=== PATIENT | female | born 1985 | race Caucasian/White ===

== ENCOUNTER 2021-08-12 07:54 | Outpatient (CLI) | payer OTHER, SELFPAY ==
[2021-08-12 08:08] VITALS: BMI 44.1
[2021-08-12 08:28] VITALS: BP 146/89; PULSE 96; RESP 18; TEMP 37.1; O2SAT 97; BMI 44.1
[2021-08-12 08:33] LABS: Barbiturates Screen,Urine Negative ng/ml (<200)
[2021-08-12 08:34] LABS: Benzodiazepines Screen,Urine Negative ng/ml (<200)
[2021-08-12 08:35] LABS: Amphetamine/Metha Screen,Urine Negative ng/ml (<1000); Cocaine Screen,Urine Negative ng/ml (<300)
[2021-08-12 08:36] LABS: Methadone Screen,Urine Negative ng/ml (<300)
[2021-08-12 08:37] LABS: Cannabinoid Screen,Urine Negative ng/ml (<50); Opiate Screen,Urine Negative ng/ml (<300)
[2021-08-12 08:38] LABS: Phencyclidine Screen,Urine Negative ng/ml (<25)
[2021-08-12 08:49] LABS: Microscopic, Urine URINE MICROSCOPIC (MICROSCOPIC)
[2021-08-12 08:54] LABS: Appearance,Urine CLEAR (Clear); Bilirubin,Urine Negative (Negative); Blood, Urine TRACE-I (Negative); Color,Urine YELLOW (Yellow); Glucose,Urine (UA) Negative (Negative); Ketones,Urine Negative (Negative); Leukocyte Esterase,Urine TRACE (Negative); Nitrate,Urine Negative (Negative); PH,Urine 6.5 (5.0-8.5); Protein,Urine 1+ (Negative); Specific Gravity, Urine 1.025 (1.005-1.030); Urobilinogen,Urine 0.2 EU/dl (0.2)
[2021-08-12 09:27] LABS: Bacteria,Urine 1+ /lpf; WBC,Urine Occasional #/hpf (0-3)
== END 2021-08-12 09:48 | disposition home or self-care (01) ==
LOC: OBOUT 07:58 → OB 08:02
PROVIDERS: PCP Family Medicine; Visit Provider Nurse Practitioner Obstetrics & Gynecology
DX: O36.8130 Decreased fetal movements, third trimester, not applicable or unspecified (principal); Z3A.37 37 weeks gestation of pregnancy
CPT/HCPCS: 59025; 80305; 81001; G0463

== ENCOUNTER 2022-08-28 02:28 | Emergency (ER) | payer BC, OTHER, SELFPAY ==
[2022-08-28] VITALS (10 sets, daily range): BP systolic 106–132; BP diastolic 56–81; PULSE 64–87; RESP 11–18; TEMP 36.6; O2SAT 92–100; BMI 44.9
--- NOTE | 2022-08-28 02:20 | ECG_ITS ---
APPROVED REPORT Exam: Resting ECG HR:80 bpm ECG Measurements Heart Rate 80 AXES VA 156 P 66 QRSd 85 QRS 72 QT 353 T 59 QTc 389 Conclusion SINUS RHYTHM LOW QRS VOLTAGE IN PRECORDIAL LEADS [QRS DEFLECTION < 1.0 mV IN CHEST LEADS] BORDERLINE ECG UNCONFIRMED REPORT Electronically signed by : Cortes Gallego MD 08/29/2022 08:58:56
--- NOTE | 2022-08-28 02:38 | CT_ITS ---
PROCEDURE INFORMATION: Exam: CT Abdomen And Pelvis With Contrast Exam date and time: 08/28/2022 3:28 AM Age: 37 years old Clinical indication: Abdominal pain; Localized; Upper; Additional info: Buq pain TECHNIQUE: Imaging protocol: Computed tomography of the abdomen and pelvis with contrast. Radiation optimization: All CT scans at this facility use at least one of these dose optimization techniques: automated exposure control; mA and/or kV adjustment per patient size (includes targeted exams where dose is matched to clinical indication); or iterative reconstruction. Contrast material: ISOVUE; Contrast volume: 75 ml; Contrast route: IV; Other protocol: This patient has received 0 known CTs and 0 known cardiac nuclear medicine studies in the 12 months prior to the current study. COMPARISON: CR XR CHEST 2V 08/28/2022 3:13 AM FINDINGS: Liver: Normal. No mass. Gallbladder and bile ducts: Normal. No calcified stones. No ductal dilation. Pancreas: Normal. No ductal dilation. Spleen: Normal. No splenomegaly. Adrenal glands: Normal. No mass. Kidneys and ureters: Normal. No hydronephrosis. Stomach and bowel: Unremarkable. No obstruction. No mucosal thickening. Appendix: No evidence of appendicitis. Intraperitoneal space: Unremarkable. No free air. No significant fluid collection. Vasculature: Unremarkable. No abdominal aortic aneurysm. Lymph nodes: A few scattered mildly prominent mesenteric lymph nodes are identified measuring up to 8 mm in diameter. A few periceliac lymph nodes are also seen. Urinary bladder: Unremarkable as visualized. Reproductive: Unremarkable as visualized. Bones/joints: Unremarkable. No acute fracture. Soft tissues: Unremarkable. IMPRESSION: Some mildly prominent lymph nodes in the mesentery and upper retroperitoneum are identified the etiology of these are unclear, these could be reactive to recent infectious process. No other acute process is identified.
--- NOTE | 2022-08-28 02:38 | XR_ITS ---
PROCEDURE INFORMATION: Exam: XR Chest Exam date and time: 08/28/2022 3:13 AM Age: 37 years old Clinical indication: Other: Upper abd pain; Additional info: Chest/ upper abdomen pain TECHNIQUE: Imaging protocol: Radiologic exam of the chest. Views: 2 views. COMPARISON: CR CXR CHEST(2 VIEWS-NOT PORTABLE) 05/07/2017 9:34 AM FINDINGS: Lungs: Unremarkable. No consolidation. Pleural spaces: Unremarkable. No pleural effusion. No pneumothorax. Heart/Mediastinum: Unremarkable. No cardiomegaly. Bones/joints: Unremarkable. IMPRESSION: No acute findings.
[2022-08-28 02:46] LABS: Basophils # 0.2 K/mm3 (0-0.2); Basophils % 1.9 % (0.1-2.0); Eosinophils # 0.5 K/mm3 (0.0-0.4); Eosinophils % 4.5 % (0.1-12.0); Hematocrit 43.3 % (37.0-47.0); Hemoglobin 14.7 g/dL (12.2-16.2); Lymphocytes # 3.2 K/mm3 (0.7-4.5); Lymphocytes % 28.9 % (10-50); Mean Corpuscular HGB Conc 34.1 g/dL (31.8-35.4); Mean Corpuscular Hemoglobin 29.6 pg (27.0-31.2); Mean Corpuscular Volume 86.8 fl (81-99); Mean Platelet Volume 7.8 fl (7.4-10.4); Monocytes # 0.7 K/mm3 (0.1-1.0); Monocytes % 6.4 % (1.7-9.3); Neutrophils # 6.5 K/mm3 (1.8-7.8); Neutrophils % 58.4 % (37.0-80.0); Platelet Count 267 K/mm3 (142-424); Red Blood Count 4.98 M/mm3 (4.20-5.40); Red Cell Distribution Width 13.5 % (11.5-17.5); White Blood Count 11.1 K/mm3 (4.8-10.8)
[2022-08-28 02:52] LABS: Alanine Aminotransferase 42 U/L (12-78); Albumin Level 4.3 g/dl (3.5-5.0); Alkaline Phosphatase 112 U/L (38-126); Amylase 81 U/L (30-110); Anion Gap 9.8 mEq/L (5-15); Aspartate Amino Transferase 49 U/L (14-36); Bilirubin,Direct 0.3 mg/dl (0.0-0.4); Bilirubin,Indirect 0.1 mg/dL (0.0-0.9); Bilirubin,Total 0.4 mg/dl (0.2-1.3); Bilirubin,Unconjugated 0.1 mg/dL (0.0-1.1); Blood Urea Nitrogen 15 mg/dl (7-17); Calcium 8.7 mg/dl (8.4-10.2); Carbon Dioxide 28 mmol/L (22.0-30.0); Chloride 103 mmol/L (98-107); Creatinine Clearance Estimated 99 mL/min (50-200); Estimated Glomerular Filt Rate 94 ml/min (>60); GFR (African American) 114 ML/MIN (>60); Glucose 119 mg/dl (74-100); Lipase 208 U/L (23-300); Potassium 3.8 mmoL/L (3.5-5.1); Sodium 137 mmol/L (136-145); Total Protein,Serum 7.3 g/dl (6.3-8.2)
[2022-08-28 02:57] LABS: C-Reactive Protein 12.8 mg/L (0-4)
[2022-08-28 03:09] LABS: Troponin I < 0.01 ng/ml (0.00-0.034)
[2022-08-28 03:15] LABS: HCG Qualitative, Serum Negative (Negative)
[2022-08-28 03:16] LABS: Erythrocyte Sedimentation Rate 16 mm/hr (0-20)
--- NOTE | 2022-08-28 03:18 | HMH.EDABDPAI ---
Discharge Plan Disposition Chief Complaint: Abdominal Pain Prescriptions Prescriptions: No Action No Known Home Medications Referrals Follow up/Referrals: Provider,Referral, MD [Primary Care Provider] - See instructions Clinical Impressions Clinical Impression: Abdominal pain Instructions Patient Instructions: DI for Acute Abdominal Pain Discharge ED Provider: Piter (ED)Daniel Abdominal Pain HPI General Chief Complaint: Abdominal Pain Stated Complaint: chest pain Time Seen by Provider: 08/28/22 03:18 Mode of Arrival: Ambulatory Source of Information: Patient and Medical Record Limitations: No Limitations Description of Symptoms (Recalled from ER Triage Doc. by RN): Pt reports squeezing upper quadrant abdominal pain that awoke her about an hour ago . Pt says pain was 8 out of 10 then but has subsided to a 7 out of 10. Pt endorses some nausea as well. History of Present Illness HPI narrative: acute onset of upper abd pain which started tonight with nausea - MD complaint: abdominal pain Onset (ago): hour(s) Consistency: constant Location: epigastric Severity: moderate Quality: sharp Related Data Home Medications Medication Instructions Recorded Confirmed No Known Home Medications 08/28/22 08/28/22 Allergies Allergy/AdvReac Type Severity Reaction Status Date / Time No Known Allergies Allergy Unverified 06/30/17 14:20 [facility] Disclaimer: The information contained in this section may have been updated after the patient was seen, as this information can be updated by other users. Social History Smoking Status: Never smoker alcohol intake: never current occupational status: employed Travel in the last 8 weeks: None ROS Obtained: Yes All systems reviewed & no additional complaints except as documented Physical Exam General General appearance: alert Head Head exam: normocephalic Eye Eye exam: Present PERRL and EOMI; Absent scleral icterus ENT ENT exam: Present mucous membranes moist Neck Neck exam: Present trachea midline Respiratory Respiratory exam: Absent respiratory distress Cardiovascular Cardiovascular exam: Present regular rate Abdominal Exam Abdominal exam: Present soft, tenderness and Thomson's sign; Absent guarding or rebound Abdominal tenderness: Present RUQ and moderate Extremities Exam Extremities exam: Present full ROM Neurological Exam Neurological exam: Present alert, oriented X3 and CN II-XII intact; Absent motor sensory deficit Psychiatric Psychiatric exam: Present normal affect Skin Skin exam: Absent rash Medical Decision Making Medical Records Medical records reviewed: Yes I reviewed the patient's medical records. Tylor Inquiry Pt receiving controlled substance: No Vital Signs: 08/28/22 02:28 08/28/22 02:31 08/28/22 03:35 Temperature 97.9 F Temperature Source Oral Pulse Rate 86 84 Pulse Rate [Right Radial] 86 Respiratory Rate 16 18 12 Blood Pressure 132/81 126/75 Blood Pressure [Right Arm] 120/56 L Blood Pressure Mean 98 Blood Pressure Mean [Right Arm] 77 Blood Pressure Source [Right Arm] Automatic Cuff Blood Pressure Position [Right Arm] Sitting 02 Sat by Pulse Oximetry 99 95 Oxygen Delivery Method Room Air Room Air 08/28/22 04:00 08/28/22 04:30 08/28/22 05:00 Temperature Temperature Source Pulse Rate 70 73 64 Pulse Rate [Right Radial] Respiratory Rate 16 15 15 Blood Pressure 111/67 110/70 106/62 L Blood Pressure [Right Arm] Blood Pressure Mean Blood Pressure Mean [Right Arm] Blood Pressure Source [Right Arm] Blood Pressure Position [Right Arm] 02 Sat by Pulse Oximetry 94 L 92 L 96 Oxygen Delivery Method Room Air Room Air Room Air 08/28/22 05:30 08/28/22 06:00 08/28/22 06:30 Temperature Temperature Source Pulse Rate 77 Pulse Rate [Right Radial] Respiratory Rate 17 11 L 14 Blood Pressure 122/70 128/73 117/62 Blood Pressure [Right Arm] Blo
--- NOTE | 2022-08-28 03:45 | PC.NURSE ---
patient returned from CT. resting in bed at this time. No other needs
--- NOTE | 2022-08-28 06:00 | PC.NURSE ---
pt still c/o mild nausea. medicated per MAR no new needs at this time
--- NOTE | 2022-08-28 06:41 | PC.NURSE ---
Pt continues to be nauseated and dry heave, medicated with another 4mg of zofran and will continue with PO Challenge. Updated patient on POC. PT agreeable with this. No other needs at this time.
--- NOTE | 2022-08-28 06:58 | PC.NURSE ---
Pt states that her nausea is much better and is minimal as long as she isn't moving around.
== END 2022-08-28 07:09 | disposition home or self-care (01) ==
PROVIDERS: Emergency Provider Emergency Medicine
DX: R10.10 Upper abdominal pain, unspecified (principal); R11.0 Nausea
CPT/HCPCS: 71046; 74177; 80048; 80076; 82150; 83690; 84484; 84703; 85025; 85651; 86140; 93005; 96361; 96374; 96375; 96376; 99285; J2405; Q9967

== ENCOUNTER 2022-08-28 23:46 | Emergency (ER) | payer BC, OTHER, SELFPAY ==
[2022-08-28 23:48] VITALS: BP 113/50; PULSE 105; RESP 24; TEMP 36.5; O2SAT 99; BMI 44.9
[2022-08-28 23:56] VITALS: BP 110/47; PULSE 56; RESP 20
[2022-08-28 23:57] VITALS: BMI 44.9
[2022-08-29] VITALS (15 sets, daily range): BP systolic 108–165; BP diastolic 50–90; PULSE 52–77; RESP 15–56; TEMP 36.9; O2SAT 93–97
--- NOTE | 2022-08-29 00:13 | PC.NURSE ---
Patient c/o severe pain 03/22. Medicated per sep. Pt c/o excessively sweating. Pt given cold washcloth.
[2022-08-29 00:18] LABS: Basophils # 0.1 K/mm3 (0-0.2); Basophils % 0.6 % (0.1-2.0); Eosinophils # 0.2 K/mm3 (0.0-0.4); Eosinophils % 1.1 % (0.1-12.0); Hematocrit 43.6 % (37.0-47.0); Hemoglobin 14.2 g/dL (12.2-16.2); Lymphocytes # 1.9 K/mm3 (0.7-4.5); Lymphocytes % 12.8 % (10-50); Mean Corpuscular HGB Conc 32.6 g/dL (31.8-35.4); Mean Corpuscular Hemoglobin 29.5 pg (27.0-31.2); Mean Corpuscular Volume 90.6 fl (81-99); Neutrophils # 11.4 K/mm3 (1.8-7.8); Neutrophils % 78.5 % (37.0-80.0); Platelet Count 316 K/mm3 (142-424); Red Blood Count 4.81 M/mm3 (4.20-5.40); Red Cell Distribution Width 13.6 % (11.5-17.5); White Blood Count 14.5 K/mm3 (4.8-10.8)
[2022-08-29 00:19] LABS: Alanine Aminotransferase 422 U/L (12-78); Albumin/Globulin Ratio 1.4 (1.1-1.8); Alkaline Phosphatase 144 U/L (38-126); Anion Gap 11.9 mEq/L (5-15); Aspartate Amino Transferase 510 U/L (14-36); Blood Urea Nitrogen 11 mg/dl (7-17); Calcium 8.5 mg/dl (8.4-10.2); Carbon Dioxide 24 mmol/L (22.0-30.0); Chloride 107 mmol/L (98-107); Creatinine Clearance Estimated 99 mL/min (50-200); Estimated Glomerular Filt Rate 94 ml/min (>60); GFR (African American) 114 ML/MIN (>60); Globulin 2.8 g/dL (1.3-3.2); Glucose 225 mg/dl (74-100); Potassium 3.9 mmoL/L (3.5-5.1); Sodium 139 mmol/L (136-145); Total Protein,Serum 6.8 g/dl (6.3-8.2)
[2022-08-29 00:32] LABS: HCG Qualitative, Serum Negative (Negative)
--- NOTE | 2022-08-29 00:32 | HMH.EDABDPAI ---
Discharge Plan Disposition Patient Disposition: Still a Patient Prescriptions Prescriptions: No Action ondansetron 8 mg tablet,disintegrating 8 mg PO Q8H PRN (Reason: nausea and vomiting) Qty: 30 0RF promethazine 12.5 mg tablet 12.5 mg PO TID PRN (Reason: nausea and vomiting) Qty: 30 0RF dicyclomine 10 mg capsule 10 mg PO Q6H PRN (Reason: abdominal pain) Qty: 60 0RF Referrals Follow up/Referrals: Daniel Dumas MD [Primary Care Provider] - See instructions Clinical Impressions Clinical Impression: Acute pancreatitis, Cholelithiasis Discharge ED Provider: Piter (ED)Daniel Abdominal Pain HPI <Daniel Dumas (ED)MD - Last Filed: 08/29/22 09:05> General Chief Complaint: Abdominal Pain Stated Complaint: right side pain in waist line area Time Seen by Provider: 08/29/22 00:05 Mode of Arrival: Family Vehicle Source of Information: Patient, Significant Other and Medical Record Limitations: No Limitations Description of Symptoms (Recalled from ER Triage Doc. by RN): Pt c/o gallbladder attack with severe upper abd pain. States she was seen in the ER yesterday and followed-up with PCP in office yesterday afternoon and new prescription for Bentyl. Pt did take 1st dose @ 1800 (08/28) and tylenol @2100 and Motrin @ 2200 without relief. Denies any nausea at this time, however she did have a vomiting episode after eating a few crackers. History of Present Illness HPI narrative: pt with prev ed visit and had prob gb dis and was seen in pcp and gb eval planned - pt with acute pain tonight - no fever complaint: abdominal pain Onset (ago): hour(s) Consistency: constant Location: LUQ, RUQ and epigastric Severity: severe Quality: sharp Associated symptoms: nausea Related Data Previous Rx's Medication Instructions Recorded dicyclomine 10 mg capsule 10 mg PO Q6H PRN abdominal pain 08/28/22 #60 caps ondansetron 8 mg disintegrating 8 mg PO Q8H PRN nausea and 08/28/22 tablet vomiting #30 tabs promethazine 12.5 mg tablet 12.5 mg PO TID PRN nausea and 08/28/22 vomiting #30 tabs Allergies Allergy/AdvReac Type Severity Reaction Status Date / Time No Known Allergies Allergy Verified 08/28/22 13:11 PFSH <Daniel Dumas (VANESA)MD - Last Filed: 08/29/22 09:05> PFS Disclaimer: The information contained in this section may have been updated after the patient was seen, as this information can be updated by other users. Social History Smoking Status: Never smoker alcohol intake: never current occupational status: employed Travel in the last 8 weeks: None <Daniel Dumas (ED)MD - Last Filed: 08/29/22 09:05> ROS Obtained: Yes All systems reviewed & no additional complaints except as documented Physical Exam <Daniel Dumas (VANESA)MD - Last Filed: 08/29/22 09:05> General General appearance: alert and obese Head Head exam: normocephalic Eye Eye exam: Present PERRL and EOMI; Absent scleral icterus ENT ENT exam: Present mucous membranes moist Neck Neck exam: Present trachea midline Respiratory Respiratory exam: Present normal lung sounds bilaterally; Absent respiratory distress Cardiovascular Cardiovascular exam: Present regular rate Abdominal Exam Abdominal exam: Present soft, tenderness and Thomson's sign; Absent guarding Abdominal tenderness: Present RUQ and LUQ Extremities Exam Extremities exam: Present full ROM Neurological Exam Neurological exam: Present alert, oriented X3 and CN II-XII intact; Absent motor sensory deficit Psychiatric Psychiatric exam: Present normal affect Skin Skin exam: Absent rash Medical Decision Making <Daniel MILLARD)MD - Last Filed: 08/29/22 09:05> Medical Records Medical records reviewed: Yes I reviewed the patient's medical records. Tylor Inquiry Pt receiving controlled substance: No Vital Signs: 08/28/22 23:48 08/28/22 23:56 08/29/22 00:03 Temperature 97.7 F Temperatu
[2022-08-29 01:11] LABS: Amylase 2788 U/L (30-110)
[2022-08-29 01:31] LABS: Microscopic, Urine URINE MICROSCOPIC (MICROSCOPIC)
[2022-08-29 01:34] LABS: Appearance,Urine CLEAR (Clear); Blood, Urine 3+ (Negative); Glucose,Urine (UA) Negative (Negative); Ketones,Urine TRACE (Negative); Leukocyte Esterase,Urine Negative (Negative); Nitrate,Urine Negative (Negative); Protein,Urine 1+ (Negative); Specific Gravity, Urine >= 1.030 (1.005-1.030)
--- NOTE | 2022-08-29 01:39 | CT_ITS ---
PROCEDURE INFORMATION: Exam: CT Abdomen And Pelvis With Contrast Exam date and time: 08/29/2022 2:03 AM Age: 37 years old Clinical indication: Abnormal findings; Abnormal lab test; Elevated liver enzymes; Additional info: Abd pain with n/v, elevated liver panc enzymes TECHNIQUE: Imaging protocol: Computed tomography of the abdomen and pelvis with contrast. Radiation optimization: All CT scans at this facility use at least one of these dose optimization techniques: automated exposure control; mA and/or kV adjustment per patient size (includes targeted exams where dose is matched to clinical indication); or iterative reconstruction. Contrast material: ISOVUE; Contrast volume: 75 ml; Contrast route: IV; Other protocol: This patient has received [address] and 0 known cardiac nuclear medicine studies in the 12 months prior to the current study. COMPARISON: CT ABDOMEN PELVIS W CON 08/28/2022 3:28 AM FINDINGS: Liver: Normal. No mass. Gallbladder and bile ducts: Normal. No calcified stones. No ductal dilation. Pancreas: There is moderate edema of the pancreatic head with surrounding small amount of fluid and fatty stranding, compatible with acute pancreatitis. No loculated peripancreatic fluid collections are seen. Spleen: Normal. No splenomegaly. Adrenal glands: Normal. No mass. Kidneys and ureters: Normal. No hydronephrosis. Stomach and bowel: Wall thickening of the duodenum secondary to adjacent inflammatory changes in the pancreas noted. Bowel loops are normal in caliber. No evidence of obstruction. Appendix: No evidence of appendicitis. Intraperitoneal space: Mild scattered fluid noted in the upper abdomen. No evidence of free air. Vasculature: Unremarkable. No abdominal aortic aneurysm. Lymph nodes: Unremarkable. No enlarged lymph nodes. Urinary bladder: Unremarkable as visualized. Reproductive: Unremarkable as visualized. Bones/joints: Moderate degenerative disc changes noted at the lumbosacral junction of the spine. Soft tissues: Unremarkable. IMPRESSION: Uncomplicated acute pancreatitis involving the pancreatic head
--- NOTE | 2022-08-29 01:40 | PC.NURSE ---
Dr. Dumas s/w Dr. Moss and he would like a repeat CT scan
[2022-08-29 01:52] LABS: Bilirubin,Urine 2+ (Negative); Color,Urine Orange (Yellow)
[2022-08-29 01:53] LABS: Bacteria,Urine 1+ /lpf; Mucus,Urine 1+ /lpf
[2022-08-29 01:57] LABS: Coronavirus 19, PCR Not Detected (NotDetected); Influenza A, PCR Not Detected (NotDetected); Influenza B, PCR Not Detected (NotDetected)
--- NOTE | 2022-08-29 01:58 | PC.NURSE ---
pt to ct scan via wheelchair
--- NOTE | 2022-08-29 02:46 | PC.NURSE ---
[facility] supervisor notified for bed assignment
--- NOTE | 2022-08-29 02:59 | US_ITS ---
FINAL REPORT CLINICAL HISTORY: Upper abd pain, gallstones, elevated rodrigo/pancr enz FINDINGS: Sonographic images of the right upper quadrant were obtained in the longitudinal and transverse planes. PANCREAS: The pancreas tail is obscured, the head is within normal limits.. LIVER: The liver has increased echogenicity consistent with fatty infiltration. No focal hepatic lesion. No intrahepatic biliary ductal dilatation. GALLBLADDER: Gallstones. No gallbladder wall thickening or pericholecystic fluid. COMMON DUCT: 3 mm. Normal for age. RIGHT KIDNEY: The right kidney measures 12 cm. There is no hydronephrosis, mass, or stone. FREE FLUID: None. IMPRESSION: Cholelithiasis. Normal common duct. Fatty liver. Reviewed, Interpreted and Dictated by Lakeisha Carlin MD Transcribed by Faby Spivey Authenticated and [facility]
--- NOTE | 2022-08-29 08:00 | PC.NURSE ---
Pt to Ultrasound w tech
--- NOTE | 2022-08-29 08:57 | PC.NURSE ---
DR GUZMAN SPEAKING WITH DR COOPER
--- NOTE | 2022-08-29 09:07 | CARE MANAGER ---
Anemia Episode Day 1, One: 2MN ACUTE, One: Hemolytic anemia and, Both: Finding, >=One: Hct < 30%(0.30) or Hb <?10.0 g/dL(100?g/L) Hct or Hb monitoring at least 2x/24h and, >=One: Blood product transfusion
[2022-08-29 09:16] LABS: Chol/HDL Ratio 6.3 (1-3.5); Cholesterol 213 mg/dl (140-200); HDL Cholesterol 34 mg/dl (40-60); Triglycerides 248 mg/dl (30-150); VLDL Cholesterol 50 mg/dL (0-40)
[2022-08-29 09:27] LABS: Direct LDL Cholesterol 141.03 mg/dL (100-129)
--- NOTE | 2022-08-29 09:27 | PC.NURSE ---
placed call to [facility] for transfer Dr Arreola on phone with them
--- NOTE | 2022-08-29 09:35 | PC.NURSE ---
DR TAMAYO AT HAS ACCEPTED
--- NOTE | 2022-08-29 09:35 | PC.NURSE ---
Dr Guerra with surgery accepting pt.
--- NOTE | 2022-08-29 09:43 | PC.NURSE ---
pt accepted to [facility] room 610. [phone] # for report
--- NOTE | 2022-08-29 09:54 | PC.NURSE ---
Pt resting on right side. O2 sat 85% RA. 2L NC initiated. O2 sat 97%.
--- NOTE | 2022-08-29 10:04 | PC.NURSE ---
report called to [facility] charge
--- NOTE | 2022-08-29 10:24 | PC.NURSE ---
[facility] HERE TRANSFERRING PT TO [facility]
== END 2022-08-29 10:15 | disposition other institution (70) ==
PROVIDERS: Emergency Provider Emergency Medicine; PCP Emergency Medicine
DX: K85.90 Acute pancreatitis without necrosis or infection, unspecified (principal); K80.80 Other cholelithiasis without obstruction; Z20.822 Contact with and (suspected) exposure to COVID-19
CPT/HCPCS: 74177; 76705; 80053; 80061; 81001; 82150; 83690; 84703; 85025; 96361; 96365; 96375; 99285; C9803; J0131; J2405; Q9967; U0003; U0005

== ENCOUNTER 2023-07-02 18:09 | Outpatient (CLI) | payer BC, OTHER, SELFPAY ==
[2023-07-02 18:40] VITALS: BMI 43.5
[2023-07-02 22:15] VITALS: BP 123/64; PULSE 94; RESP 16; TEMP 37; O2SAT 99; BMI 43.6
== END 2023-07-02 22:55 | disposition home or self-care (01) ==
LOC: OBOUT 18:11 → OB 18:13
PROVIDERS: PCP Family Medicine; Visit Provider Obstetrics & Gynecology
DX: O26.892 Other specified pregnancy related conditions, second trimester (principal); Z3A.24 24 weeks gestation of pregnancy; W19.XXXA Unspecified fall, initial encounter
CPT/HCPCS: G0463

== ENCOUNTER 2024-06-28 22:04 | Emergency (ER) | payer BC, OTHER, SELFPAY ==
[2024-06-28 22:05] VITALS: BP 151/93; PULSE 94; RESP 16; TEMP 36.6; O2SAT 97; BMI 27.4
[2024-06-28 22:44] VITALS: PULSE 99; O2SAT 99
[2024-06-28] MEDS: ONDANSETRON 4MG/2ML VIAL 4 MG IV (22:49)
[2024-06-28 23:01] LABS: Albumin Level 4.3 g/dl (3.5-5.0); Chloride 108 mmol/L (98-107); Sodium 138 mmol/L (136-145)
[2024-06-28 23:04] LABS: Alanine Aminotransferase 40 U/L (12-78); Albumin/Globulin Ratio 1.7 (1.1-1.8); Alkaline Phosphatase 159 U/L (38-126); Aspartate Amino Transferase 44 U/L (14-36); Bilirubin,Total 0.4 mg/dl (0.2-1.3); Blood Urea Nitrogen 14 mg/dl (7-17); Calcium 8.5 mg/dl (8.4-10.2); Carbon Dioxide 26 mmol/L (22.0-30.0); Creatinine Clearance Estimated 127 mL/min (50-200); Estimated Glomerular Filt Rate 93 ml/min (>60); GFR (African American) 113 ML/MIN (>60); Globulin 2.6 g/dL (1.3-3.2); Glucose 130 mg/dl (74-100); Lipase 128 U/L (23-300); Total Protein,Serum 6.9 g/dl (6.3-8.2)
[2024-06-28 23:05] LABS: Microscopic, Urine URINE MICROSCOPIC (MICROSCOPIC)
[2024-06-28 23:16] VITALS: BP 116/64; PULSE 96; O2SAT 95
[2024-06-28 23:23] LABS: Appearance,Urine CLEAR (Clear); Bilirubin,Urine Negative (Negative); Blood, Urine Negative (Negative); Color,Urine YELLOW (Yellow); Glucose,Urine (UA) Negative (Negative); Ketones,Urine Negative (Negative); Leukocyte Esterase,Urine Negative (Negative); Nitrate,Urine Negative (Negative); Protein,Urine TRACE (Negative); Specific Gravity, Urine >= 1.030 (1.005-1.030); Urobilinogen,Urine 0.2 EU/dl (0.2)
[2024-06-28 23:27] LABS: HCG,Quantitative < 2 mIU/ml (0-5.42)
[2024-06-28 23:30] VITALS: BP 118/60; PULSE 90; O2SAT 96
[2024-06-28 23:30] LABS: Lactic Acid 1.7 mmol/L (0.7-2.1)
[2024-06-28 23:32] LABS: Bacteria,Urine 1+ /lpf; Mucus,Urine 1+ /lpf
[2024-06-28 23:35] LABS: Hematocrit 43.5 % (37.0-47.0); Hemoglobin 14.2 g/dL (12.2-16.2); Mean Corpuscular HGB Conc 32.6 g/dL (31.8-35.4); Mean Corpuscular Hemoglobin 28.7 pg (27.0-31.2); Mean Corpuscular Volume 87.9 fl (81-99); Red Blood Count 4.95 M/mm3 (4.20-5.40); White Blood Count 11.6 K/mm3 (4.8-10.8)
[2024-06-28 23:36] LABS: Basophils % 0.3 % (0.1-2.0); Eosinophils # 0.2 K/mm3 (0.0-0.4); Eosinophils % 1.6 % (0.1-12.0); Lymphocytes # 0.7 K/mm3 (0.7-4.5); Lymphocytes % 6.2 % (10-50); Mean Platelet Volume 9.8 fl (7.4-10.4); Monocytes # 1.1 K/mm3 (0.1-1.0); Monocytes % 9.4 % (1.7-9.3); Neutrophils # 9.6 K/mm3 (1.8-7.8); Neutrophils % 82.3 % (37.0-80.0); Platelet Count 209 K/mm3 (142-424); Red Cell Distribution Width 13.3 % (11.5-17.5)
--- NOTE | 2024-06-28 23:50 | HMH.EDGENADL ---
Discharge Plan Disposition Patient Disposition: Home, Self-Care Condition: Good Prescriptions Prescriptions: No Action ondansetron 8 mg tablet,disintegrating 8 mg PO Q8H PRN (Reason: nausea and vomiting) Qty: 30 0RF promethazine 12.5 mg tablet 12.5 mg PO TID PRN (Reason: nausea and vomiting) Qty: 30 0RF dicyclomine 10 mg capsule 10 mg PO Q6H PRN (Reason: abdominal pain) Qty: 60 0RF Referrals Follow up/Referrals: Provider,Referral, [Primary Care Provider] - See instructions Activity Restrictions/Add. Instructions Additional Instructions/Restrictions: Please follow-up with your primary care provider. Please return to the emergency department if you develop any new or worsening symptoms or become concerned for your health. Clinical Impressions Clinical Impression: Vomiting Instructions Patient Instructions: DI for Hyperglycemia -- Adult Print Language Print Language: Yemeni Discharge ED Provider: Alfred Miller General Adult HPI <Dax Gilbert MD - Last Filed: 06/28/24 23:53> General Chief complaint: Hyper/Hypoglycemia Stated complaint: low blood sugar-42 Time Seen by Provider: 06/28/24 22:10 Mode of Arrival: Ambulatory Source of Information: Patient Limitations: No Limitations Description of Symptoms (Recalled from ER Triage Doc. by RN): Patient felt bad, so she checked her glucose- Patient is NOT diabetic- Patient stated her glucose at home was 45, but that her strips were as of 2022- states she drank juice. BG on arrival is 108 History of Present Illness HPI narrative: Please note that above description of symptoms, in this electronic medical record under categorization of recalled from ER triage doctor by RN are reflective of an initial nursing assessment, however, is not reflective of my full history and physical exam that was personally taken and clarified. Consequentially, this preceding description of symptoms, which may include the patient's categorized chief complaint in the EMR, do not reflect my personal clinical impression, and the ultimate description of history of present illness and patient stated complaints should be deferred to this section of the note. Unless stated otherwise or congruent with this section of the note, additional signs, symptoms, or incongruence should be interpreted as inaccurate with my clinical impression. Related Data Previous Rx's ?Medication ?Instructions ?Recorded dicyclomine 10 mg capsule 10 mg PO Q6H PRN abdominal pain 08/28/22 #60 caps ondansetron 8 mg disintegrating 8 mg PO Q8H PRN nausea and 08/28/22 tablet vomiting #30 tabs promethazine 12.5 mg tablet 12.5 mg PO TID PRN nausea and 08/28/22 vomiting #30 tabs Allergies Allergy/AdvReac Type Severity Reaction Status Date / Time No Known Allergies Allergy Verified 08/28/22 13:11 PFS <Dax Gilbert MD - Last Filed: 06/28/24 23:53> [facility] Disclaimer: The information contained in this section may have been updated after the patient was seen, as this information can be updated by other users. Social History Smoking Status: Never smoker alcohol intake: never current occupational status: employed Travel in the last 8 weeks: None Have you lived/traveled outside [place] in past 30 days?: No Contact w/someone who lives/traveled outside [place] past 30 days?: No Exposure to someone with infectious disease in past 14 days?: No Do you have a fever (greater than 100.4 F or 38 C)?: No Have you tested positive for COVID-19: No Exposed to someone with COVID-19 in past 14 days?: No Do you have a sore throat?: No Do you have a cough?: No Do you have any weakness?: No Do you have any diarrhea?: No Are you experiencing any unusual bleeding?: No Do you have any muscle aches/pain?: No Do you have any abdominal pain?: No Are you experiencing loss of taste or smell?: No Other Medical History Have you received the Flu Vaccine for this season: No Have you received the Pneumonia Vaccine: No <Dax Gilbert MD - Last Filed: 06/28/24 23:53> ROS Obtained: Yes All systems reviewed & no additional complaints except as documented Physical Exam <Dax Gilbert MD - Last Filed: 06/28/24 23:53> General General appearance: alert Head Head exam: atraumatic and normocephalic Eye Eye exam: Present normal appearance, PERRL and EOMI Neck Neck exam: Present normal inspection, full ROM and trachea midline Respiratory Respiratory exam: Absent respiratory distress, wheezes, stridor, accessory muscle use or prolonged expiratory phase Cardiovascular Cardiovascular exam: Present other (Pulses equal symmetric in upper and lower extremities) Abdominal Exam Abdominal exam: Present soft; Absent distention, tenderness or pulsatile mass Extremities Exam Extremities exam: Absent edema Neurological Exam Neurological exam: Present alert, oriented X3 and CN II-XII intact; Absent motor sensory deficit Skin Skin exam: Present warm and dry; Absent diaphoresis or erythema Medical Decision Making <Dax Gilbert MD - Last Filed: 06/28/24 23:53> Medical Records Medical records reviewed: Yes I reviewed the patient's medical records. Screening: Per USPSTF and CDC recommendations, given the prevalence of disease in our region, it is our hospital?s policy to screen for HIV and viral Hepatitis for all patients aged 18 and over and those with ongoing risk factors. [place] Inquiry Pt receiving controlled substance: No [place] was queried for this patient: No Vital Signs: 06/28/24 22:05 06/28/24 22:44 06/28/24 23:16 Temperature 97.9 F Temperature Source Oral Pulse Rate 99 H 96 H Pulse Rate [Right Radial] 94 H Respiratory Rate 16 Blood Pressure 116/64 Blood Pressure [Right Arm] 151/93 H Blood Pressure Mean 81 Blood Pressure Mean [Right Arm] 112 Blood Pressure Source [Right Arm] Automatic Cuff Blood Pressure Position Blood Pressure Position [Right Arm] Supine 02 Sat by Pulse Oximetry 97 99 95 Oxygen Delivery Method Room Air 06/28/24 23:30 06/29/24 00:00 06/29/24 00:30 Temperature Temperature Source Pulse Rate 90 94 H 94 H Pulse Rate [Right Radial] Respiratory Rate Blood Pressure 118/60 128/68 110/71 Blood Pressure [Right Arm] Blood Pressure Mean 80 Blood Pressure Mean [Right Arm] Blood Pressure Source [Right Arm] Blood Pressure Position Blood Pressure Position [Right Arm] 02 Sat by Pulse Oximetry 96 96 96 Oxygen Delivery Method 06/29/24 01:00 06/29/24 01:30 Temperature 97.9 F Temperature Source Oral Pulse Rate 100 H 74 Pulse Rate [Right Radial] Respiratory Rate 14 Blood Pressure 127/68 139/98 H Blood Pressure [Right Arm] Blood Pressure Mean Blood Pressure Mean [Right Arm] Blood Pressure Source [Right Arm] Blood Pressure Position Supine Blood Pressure Position [Right Arm] 02 Sat by Pulse Oximetry 96 Oxygen Delivery Method Room Air Lab Data Lab Results 06/28/24 22:42: WBC 11.6 H, RBC 4.95, Hgb 14.2, Hct 43.5, MCV 87.9, MCH 28.7, MCHC 32.6, RDW 13.3, Plt Count 209, MPV 9.8, Neut % (Auto) 82.3 H, Lymph % (Auto) 6.2 L, [place] % (Auto) 9.4 H, Eos % (Auto) 1.6, Baso % (Auto) 0.3, Neut # (Auto) 9.6 H, Lymph # (Auto) 0.7, [place] # (Auto) 1.1 H, Eos # (Auto) 0.2, Baso # (Auto) 0.0, Sodium 138, Potassium 4.0, Chloride 108 H, Carbon Dioxide 26, Anion Gap 8.0, BUN 14, Creatinine 0.70, Estimated Creat Clear 127, Estimated GFR 93, Est GFR ( Amer) 113, Glucose 130 H, Calcium 8.5, Total Bilirubin 0.4, AST 44 H, ALT 40, Alkaline Phosphatase 159 H, Total Protein 6.9, Albumin 4.3, Globulin 2.6, Albumin/Globulin Ratio 1.7, Lipase 128, HCG, Quant < 2 06/28/24 22:58: Urine Color Yellow, Urine Appearance Clear, Urine pH 6.0, Ur Specific [place] >= 1.030, Urine Protein Trace, Urine Glucose (UA) Negative, Urine Ketones Negative, Urine Blood Negative, Urine Nitrate Negative, Urine Bilirubin Negative, Urine Urobilinogen 0.2, Ur Leukocyte Esterase Negative, Urine RBC None, Urine WBC None, Ur Squamous Epith Cells 5-10, Urine Bacteria 1+, Urine Mucus 1+ 06/28/24 23:16: Lactate 1.7 06/28/24 22:42 06/28/24 22:42 Orders (Tests/Meds): ED MEDICATIONS Discontinued Medications Generic Name Dose Route Start Last Admin Trade Name Freq PRN Reason Stop Dose Admin Ondansetron HCl 4 mg 06/28/24 22:20 06/28/24 22:49 Ondansetron 4mg/2ml Vial IV 06/28/24 22:21 4 mg ONCE ONE Administration Promethazine HCl 25 mg 06/29/24 00:48 06/29/24 00:53 Promethazine Hcl 25mg/Ml 1ml Vial IV 06/29/24 00:49 25 mg ONCE ONE Administration Sodium Chloride 25 ml 06/29/24 00:48 06/29/24 00:53 Sodium Chloride 0.9% 25ml Bag IV 06/29/24 00:49 25 ml ONCE ONE Administration ORDERS Category Date Time Status CBC w/Auto Diff [Complete Blood Count Auto Diff] Stat Lab 06/28/24 22:42 Completed CMP [Comprehensive Metabolic Panel] Stat Lab 06/28/24 22:42 Completed HCG,Quantitative Stat Lab 06/28/24 22:42 Completed Lactic Acid Stat Lab 06/28/24 23:16 Completed Lipase Stat Lab 06/28/24 22:42 Completed UA [Urinalysis and Microscopic] Stat Lab 06/28/24 22:58 Completed Medical Decision Narrative: This is a 39-year-old female history of cholecystectomy, section, gestational diabetes presenting with concern for hypoglycemia. Patient states that just before arrival, she felt lightheaded, weak, unlike herself. Used old glucose strips ( for about 2 years at this point) and they read low twice, followed by a reading in the 40s in the 70s. Ate some food, came to the emergency department with family shortly thereafter. Patient states that she is feeling nauseated currently on my evaluation. Abdomen is soft, nontender, nondistended. Shortly after discussion, patient started vomiting nonbloody, nonbilious vomit. Differential includes metabolic abnormality, endocrinologic abnormality, pancreatitis, gastroenteritis, among others. Patient placed on cardiac monitoring and oximetry with initial BP 151/93, pulse 94, initial O2 sat 97% on room air. Independent interpretation of workup demonstrates mild leukocytosis 11.6, likely from stress degranulation. Glucose 130, otherwise nonactionable chemistry with negative lipase and . Urinalysis without concern for UTI. Patient given p.o. challenge. Prior to p.o. challenge, reassessment of toleration of p.o. intake and reevaluation, care handed off to oncoming physician. Neighborhood Planner disclaimer Much of this encounter note is an electronic industrial waste treatment technician spoken language to printed text. Electronic industrial waste treatment technician of the spoken language may permit errors. Although I have reviewed the note, some errors may still exist. <Alfred Miller MD - Last Filed: 06/29/24 01:50> Vital Signs: 06/28/24 22:05 06/28/24 22:44 06/28/24 23:16 Temperature 97.9 F Temperature Source Oral Pulse Rate 99 H 96 H Pulse Rate [Right Radial] 94 H Respiratory Rate 16 Blood Pressure 116/64 Blood Pressure [Right Arm] 151/93 H Blood Pressure Mean 81 Blood Pressure Mean [Right Arm] 112 Blood Pressure Source [Right Arm] Automatic Cuff Blood Pressure Position Blood Pressure Position [Right Arm] Supine 02 Sat by Pulse Oximetry 97 99 95 Oxygen Delivery Method Room Air 06/28/24 23:30 06/29/24 00:00 06/29/24 00:30 Temperature Temperature Source Pulse Rate 90 94 H 94 H Pulse Rate [Right Radial] Respiratory Rate Blood Pressure 118/60 128/68 110/71 Blood Pressure [Right Arm] Blood Pressure Mean 80 Blood Pressure Mean [Right Arm] Blood Pressure Source [Right Arm] Blood Pressure Position Blood Pressure Position [Right Arm] 02 Sat by Pulse Oximetry 96 96 96 Oxygen Delivery Method 06/29/24 01:00 06/29/24 01:30 Temperature 97.9 F Temperature Source Oral Pulse Rate 100 H 74 Pulse Rate [Right Radial] Respiratory Rate 14 Blood Pressure 127/68 139/98 H Blood Pressure [Right Arm] Blood Pressure Mean Blood Pressure Mean [Right Arm] Blood Pressure Source [Right Arm] Blood Pressure Position Supine Blood Pressure Position [Right Arm] 02 Sat by Pulse Oximetry 96 Oxygen Delivery Method Room Air Lab Data Lab Results 06/28/24 22:42: WBC 11.6 H, RBC 4.95, Hgb 14.2, Hct 43.5, MCV 87.9, MCH 28.7, MCHC 32.6, RDW 13.3, Plt Count 209, MPV 9.8, Neut % (Auto) 82.3 H, Lymph % (Auto) 6.2 L, [place] % (Auto) 9.4 H, Eos % (Auto) 1.6, Baso % (Auto) 0.3, Neut # (Auto) 9.6 H, Lymph # (Auto) 0.7, [place] # (Auto) 1.1 H, Eos # (Auto) 0.2, Baso # (Auto) 0.0, Sodium 138, Potassium 4.0, Chloride 108 H, Carbon Dioxide 26, Anion Gap 8.0, BUN 14, Creatinine 0.70, Estimated Creat Clear 127, Estimated GFR 93, Est GFR ( Amer) 113, Glucose 130 H, Calcium 8.5, Total Bilirubin 0.4, AST 44 H, ALT 40, Alkaline Phosphatase 159 H, Total Protein 6.9, Albumin 4.3, Globulin 2.6, Albumin/Globulin Ratio 1.7, Lipase 128, HCG, Quant < 2 06/28/24 22:58: Urine Color Yellow, Urine Appearance Clear, Urine pH 6.0, Ur Specific [place] >= 1.030, Urine Protein Trace, Urine Glucose (UA) Negative, Urine Ketones Negative, Urine Blood Negative, Urine Nitrate Negative, Urine Bilirubin Negative, Urine Urobilinogen 0.2, Ur Leukocyte Esterase Negative, Urine RBC None, Urine WBC None, Ur Squamous Epith Cells 5-10, Urine Bacteria 1+, Urine Mucus 1+ 06/28/24 23:16: Lactate 1.7 Orders (Tests/Meds): ED MEDICATIONS Discontinued Medications Generic Name Dose Route Start Last Admin Trade Name Freq PRN Reason Stop Dose Admin Ondansetron HCl 4 mg 06/28/24 22:20 06/28/24 22:49 Ondansetron 4mg/2ml Vial IV 06/28/24 22:21 4 mg ONCE ONE Administration Promethazine HCl 25 mg 06/29/24 00:48 06/29/24 00:53 Promethazine Hcl 25mg/Ml 1ml Vial IV 06/29/24 00:49 25 mg ONCE ONE Administration Sodium Chloride 25 ml 06/29/24 00:48 06/29/24 00:53 Sodium Chloride 0.9% 25ml Bag IV 06/29/24 00:49 25 ml ONCE ONE Administration ORDERS Category Date Time Status CBC w/Auto Diff [Complete Blood Count Auto Diff] Stat Lab 06/28/24 22:42 Completed CMP [Comprehensive Metabolic Panel] Stat Lab 06/28/24 22:42 Completed HCG,Quantitative Stat Lab 06/28/24 22:42 Completed Lactic Acid Stat Lab 06/28/24 23:16 Completed Lipase Stat Lab 06/28/24 22:42 Completed UA [Urinalysis and Microscopic] Stat Lab 06/28/24 22:58 Completed Medical Decision Narrative: This is a 39-year-old female history of cholecystectomy, section, gestational diabetes presenting with concern for hypoglycemia. Patient states that just before arrival, she felt lightheaded, weak, unlike herself. Used old glucose strips ( for about 2 years at this point) and they read low twice, followed by a reading in the 40s in the 70s. Ate some food, came to the emergency department with family shortly thereafter. Patient states that she is feeling nauseated currently on my evaluation. Abdomen is soft, nontender, nondistended. Shortly after discussion, patient started vomiting nonbloody, nonbilious vomit. Differential includes metabolic abnormality, endocrinologic abnormality, pancreatitis, gastroenteritis, among others. Patient placed on cardiac monitoring and oximetry with initial BP 151/93, pulse 94, initial O2 sat 97% on room air. Independent interpretation of workup demonstrates mild leukocytosis 11.6, likely from stress degranulation. Glucose 130, otherwise nonactionable chemistry with negative lipase and . Urinalysis without concern for UTI. Patient given p.o. challenge. Prior to p.o. challenge, reassessment of toleration of p.o. intake and reevaluation, care handed off to oncoming physician. Neighborhood Planner disclaimer Much of this encounter note is an electronic industrial waste treatment technician spoken language to printed text. Electronic industrial waste treatment technician of the spoken language may permit errors. Although I have reviewed the note, some errors may still exist. Angela BOYD: I assumed care of the patient at the time of handoff from the prior provider. On reassessment patient required additional antiemetics for nausea. Given Phenergan. After Phenergan patient reports symptomatic improvement and was able to tolerate p.o. She was discharged in stable condition. Return precautions given. Critical Care <Dax Gilbert MD - Last Filed: 06/28/24 23:53> Critical Care Time Critical Care Time: No
[2024-06-29] VITALS: BP 128/68; PULSE 94; O2SAT 96
[2024-06-29 00:30] VITALS: BP 110/71; PULSE 94; O2SAT 96
--- NOTE | 2024-06-29 00:48 | PC.NURSE ---
Accu check 130
[2024-06-29] MEDS: PROMETHAZINE HCL 25MG/ML 1ML VIAL 25 MG IV (00:53)
[2024-06-29] MEDS: SODIUM CHLORIDE 0.9% 25ML BAG 25 ML IV (00:53)
[2024-06-29 01:00] VITALS: BP 127/68; PULSE 100; O2SAT 96
[2024-06-29 01:30] VITALS: BP 139/98; PULSE 74; RESP 14; TEMP 36.6; O2SAT 99
--- NOTE | 2024-06-29 01:32 | PC.NURSE ---
IV removed. Catheter tip intact. Bleeding controlled.
== END 2024-06-29 01:35 | disposition home or self-care (01) ==
PROVIDERS: Emergency Medicine; Emergency Provider Emergency Medicine
DX: R11.2 Nausea with vomiting, unspecified (principal); E16.2 Hypoglycemia, unspecified; R42 Dizziness and giddiness; R53.1 Weakness
CPT/HCPCS: 80053; 81001; 83605; 83690; 84702; 85025; 96374; 96375; 99283; J2405; J2550

== ENCOUNTER 2025-05-12 13:12 | Outpatient (CLI) | payer BC, SELFPAY ==
--- OUTSIDE RECORDS SUMMARY | 2025-05-05 13:15 | XMS_ITS | Encounter Summary ---
Author Organization Healthcare Address [address] [place] [address] Care Team Providers Care Tax Assistant Name Role Phone Summer Jo RN Unavailable Unavailable Pamela Pinedo DO Primary Care Provider [phone] Reason for Visit * Reason Comments telehealth Encounter Details Date Type Department Care Team (Late st Contact Info) Description 05/05/2025 1:15 PM EDT Office Visit Obstetrics & Gynecology [address] [place] [address] Yosvany Isaacs MD [address] [place] [address] Irregular menstruation, unspecified (Primary Dx); PCOS (polycystic ovarian syndrome); Hirsutism Social History Tobacco Use Types Packs/Day Years Used Date Smoking Tobacco: Never Passive Smoke Exposure: Never Smokeless Tobacco: Never Alcohol Use Standard Drinks/Week Comments Not Currently 0 (1 standard drink = 0.6 oz pur e alcohol) Humiliation, Afraid, Rape, and Kick questionnair e Answer Date Recorded Within the last year, have y ou been afraid of your partner or ex-partner? No 02/16/2024 Within the last year, have y ou been humiliated or emotionally abused in other ways by your partner or ex-partner? No Within the last year, have y ou been kicked, hit, slapped, or otherwise physically hurt by your partner or ex-partner? No 02/16/2024 Within the last year, have y ou been raped or forced to have any kind of sexual activity by your partner or ex-partner? No 02/16/2024 PHQ-2 Answer Date Recorded Patient Health Questionnaire-2 Score 0 05/05/2025 Hunger Vital Sign Answer Date Recorded Within the past 12 months, y ou worried that your food would run out before you got the money to buy more. Never true 02/16/20 24 Within the past 12 months, t he food you bought just didn't last and you didn't have money to get more. Never true 02/16/2024 PRAPARE - Transportation Answer Date Re corded In the past 12 months, has l ack of transportation kept you from medical appointments or from getting medications? No 12/2023 In the past 12 months, has l ack of transportation kept you from meetings, work, or from getting things needed for daily living? No 02/16/2024 Housing Stability Vital Sign Answer Jasiel e Recorded In the last 12 months, was t here a time when you were not able to pay the mortgage or rent on time? No 02/16/2024 In the last 12 months, how many places have you lived? 1 02/16/2024 In the last 12 months, was t here a time when you did not have a steady place to sleep or slept in a long term (including now)? No 02/16/2024 [place] Depression Scale Answer Date Recorded [place] Depression Scale Total 4 11/16/2023 The thought of harming myself has occurred to me . Never 11/16/2023 PHQ-9 Answer Date Recorded Patient Health Questionnaire-9 Score 0 12/09/2024 CAGE ASSESSMENT Answer Date Recorded Cage unable to access Not on file 10/02/2023 Cage max number of drinks Not on file 2023 Cage Beverages a week Not on file 10/02/2023 Have you ever felt you should CUT down on your d rinking? 0 10/02/2023 Have you been ANNOYED by people criticizing your drinking? 0 10/02/2023 Have you felt GUILTY about your drinking? 0 10/02/2023 Have you had a drink first t antonieta in the morning (EYE-SEED PELLETER) to steady your nerves or to get rid of a hangover? 0 10/02/2023 CAGE Questionnaire Score 0 024 Utilities Answer Date Recorded In the past 12 months has th e electric, gas, oil, or water company threatened to shut off services in your home? No 02/16/2024 Comments No Sex and Gender Information Value Date Recorded Sex Assigned at Not on file Legal Sex Female 10:23 AM EST Gender Identity Not on file Sexual Orientation Not on file documented as of this encounter Last Filed Vital Signs Vital Sign Reading Time Taken Comments Blood Pressure 117/79 05/05/2025 1:25 PM EDT Pulse - - Temperature - - Respiratory Rate - - Oxygen Saturation - - Inhaled Oxygen Concentration - - Weight 125 kg (275 lb 9.2 oz) 05/05/2025 1:25 PM EDT Height 167.6 cm (5' 6 ) 05/05/2025 1:25 PM EDT Body Mass Index 44.48 05/05/2025 1:25 PM EDT documented in this encounter Functional Status * Over the past 2 weeks, how often have you been bothered by any of the following problems? Question Answer Date of Assessment Author Little interest or pleasure in doing things Not at all 05/05/2025 1:27 PM EDT Mira Ashby Feeling down, depressed, or hopeless Not at all 05/05/2025 1:27 PM EDT Mira Ashby Patient Health Questionnaire -2 Score 0 05/05/2025 1:27 PM EDT Mira Ashby documented as of this encounter Miscellaneous Notes * Assessment & Plan Note - Yosvany Isaacs MD - 05/05/2025 1:15 PM EDTAssociated Problem(s): PCOS (polycystic ovarian syndrome) * Progress Notes - Yosvany Isaacs MD - 05/05/2025 1:15 PM EDT Gynecology Note Subjective Leah Gonzales is a 40 y.o. ( x 1 C/S x 1 - TWINS) here for a f/u gynecology visit via . LPS 01/05/2025 - wnl w/ neg HPV Periods monthly - 6 d - but can have mid-cycle spotting NO b/b/b issues H/O Right Vaginal Cyst H/O PCOS - h/o Metformin use - GI upset - does have hirsutism/insulin resistance H/O Bilateral Salpingectomies NO 1st degree FMHx of female cancers Nutrition/Exercise/Supplements discussed - Magnesium Rx'ed Spironolactone last visit - has not started - still has not started ONLINE RETAILER TVUS WNL. Taking Prometrium 200 at bedtime - missing some days. VB still irregular. Here for update. The following chart sections have been reviewed and updated: Meds OB Status Review of Systems Constitutional: Negative. HENT: Negative. Eyes: Negative. Respiratory: Negative. Cardiovascular: Negative. Gastrointestinal: Negative. Endocrine: Negative. Genitourinary: Positive for menstrual problem. Musculoskeletal: Negative. Skin: SEE HPI Allergic/Immunologic: Negative. Neurological: Negative. Hematological: Negative. Psychiatric/Behavioral: Negative. All other systems reviewed and are negative. Objective Visit Vitals BP 117/79 Body mass index is 44.48 kg/m??. Physical Exam Constitutional: Appearance: Normal appearance. HENT: Head: Normocephalic and atraumatic. Right Ear: External ear normal. Left Ear: External ear normal. Nose: Nose normal. Pulmonary: Effort: Pulmonary effort is normal. Musculoskeletal: General: Normal range of motion. Cervical back: Normal range of motion. Neurological: General: No focal deficit present. Mental Status: She is alert and oriented to person, place, and time. Skin: Comments: Some darker coarse hair on jaw line Psychiatric: Mood and Affect: Mood normal. Behavior: Behavior normal. Thought Content: Thought content normal. Judgment: Judgment normal. Vitals and nursing note reviewed. Pap reviewed Assessment Assessment & Plan Irregular menstruation, unspecified PCOS (polycystic ovarian syndrome) Hirsutism Discussed ONLINE RETAILER TVUS findings - reassurance Discussed PCOS - declines metformin for now - will consider nutrition plan for weight loss Pause Spironolactone Continue Prometrium 200 at bedtime for stabilization & lessening of VB OBS vaginal cyst for now F/U ONLINE RETAILER TH 3 m A total of 30 minutes was spent on this visit with at least more than 50% of the encounter spent incounseling and/or coordinating care including reviewing previous notes, counseling the patient on their identified issues as indicated in the note, discussing previous and/or ordered tests or imaging, prescribing/refilling medications, and documenting the findings in this note, as well as laying out a specific plan of action for this patient. Telehealth Statement Patient Verification Patient identity has been confirmed using name and date of ? Yes Authorizations and Agreements/Telemedicine Consent sent and consent confirmed? Yes Patient Location: Home/Other Patient confirms they are physically located in [place]? Yes If the patient is not physically located in [place], the provider has confirmed with [facility] thatthe provider is authorized to provide services in patient's stated location? N/A Provider Location: [facility] facility Audio and video or audio only? Audio and video Total visit time: 20 minutes documented in this encounter Plan of Treatment Upcoming Encounters Date Type Department Care Team (Late st Contact Info) Description 05/15/2025 11:30 AM EST [facility]ization [facility] [address] [place] [address] 06/01/2025 1:40 PM EST Office Visit [facility] [address], [address] [place] [address] Pamela Pinedo DO [address] [place] [address] 06/27/2025 10:20 AM EST Office Visit [facility] [address] [place] [address] Maria Guadalupe Alcantar APRN [address] [place] [address] 08/10/2025 1:15 PM EST Office Visit Obstetrics & Gynecology [address] [place] [address] Yosvany Isaacs MD [address] [place] [address] 10/09/2025 11:00 AM EDT Office Visit [facility] [place] [address] [facility], [address] [place] [address] Carolina Patel APRN [address] [place] [address] 01/11/2026 1:30 PM EDT Procedure Visit Obstetrics & Gynecology [address] [place] [address] Yosvany Isaacs MD [address] [place] [address] documented as of this encounter Visit Diagnoses Diagnosis Irregular menstruation, unspecified- Primary PCOS (polycystic ovarian syndrome) Polycystic ovaries Hirsutism documented in this encounter Additional Health Concerns Assessment Noted Time PHQ-9 Depression Total Score: 0 12/10/19 25 10:42 AM EDT A fall risk assessment has been complete d for the patient 05/05/2025 1:27 PM EDT A Body Mass Index follow-up plan has been documented for the patient 05/05/2025 1:56 PM EDT documented as of this encounter Care Teams Tax Assistant Relationship Specialty Start Date End Date Pamela Pinedo DO [address] [place] [address] PCP - General Family Medicine 02/17/24 Summer Jo, RN [facility] Registered Nurse Cardiology 08/17/23 documented as of this encounter
--- OUTSIDE RECORDS SUMMARY | 2025-05-12 13:16 | XMS_ITS | Encounter Summary ---
Author Organization Healthcare Address [address] [place] [address] Care Team Providers Care Needle Punch Machine Operator Name Role Phone Summer Jo RN Unavailable Unavailable Pamela Pinedo DO Primary Care Provider [phone] Encounter Details Date Type Department Care Team (Late st Contact Info) Description 04/08/2025 Results Follow-Up [facility] [address] [place] [address] Pamela Pinedo DO [address] [place] [address] Social History Tobacco Use Types Packs/Day Years [...] Date Recorded Patient Health Questionnaire-2 Score 0 02/01/2025 Hunger Vital Sign Answer Date Recorded Within [...] place to sleep or slept in a fpc (including now)? No 02/16/2024 [place] Depression Scale Answer Date Recorded [place] Depression Scale Total 4 11/16/2023 The thought [...] drink first t antonieta in the morning (EYE-CRESTER) to steady your nerves or to get [...] on file documented as of this encounter Plan of Treatment Upcoming Encounters Date Type Department Care Team (Late st Contact Info) Description 05/15/2025 11:30 AM EST [facility] [address] [place] [address] 06/01/2025 1:40 PM EST Office Visit [facility] [address], [address] [place] [address] Pamela Pinedo, [address] [place] [address] 06/27/2025 10:20 AM EST Office Visit [facility] [address] [place] [address] Maria Guadalupe Alcantar, [place] [address] [place] [address] 08/10/2025 1:15 PM EST Office Visit Obstetrics & Gynecology [address] [place] [address] Yosvany Isaacs MD [address] [place] [address] 10/09/2025 11:00 AM EDT Office Visit [facility] [place] [address] [facility], [address] [place] [address] Carolina Patel, [place] [address] [place] [address] 01/11/2026 1:30 PM EDT Procedure Visit Obstetrics & Gynecology [address] [facility] [place] [address] Yosvany Isaacs MD [address] [place] [address] documented as of this encounter Visit Diagnoses Not on filedocumented in this encounter Additional Health Concerns Assessment Noted Time PHQ-9 Depression Total Score: 0 12/10/19 10:42 AM EDT A fall risk assessment has been complete d for the patient 02/01/2025 11:37 AM EDT A Body Mass Index follow-up plan has been documented for the patient 02/01/2025 12:01 PM EDT documented as of this encounter Care Teams Needle Punch Machine Operator Relationship Specialty Start Date End Date Pamela Pinedo DO [address] [email or web address] [address] [place] [address] PCP - General Family Medicine 02/17/24 Summer Jo, RN [facility] Registered Nurse Cardiology 08/17/23 documented as of this encounter
--- OUTSIDE RECORDS SUMMARY | 2025-05-12 13:16 | XMS_ITS | Encounter Summary ---
Author Organization Healthcare Address [address] [place] [address] Care Team Providers Care Desk Manager Name Role Phone Summer Jo RN Unavailable Unavailable Pamela Pinedo DO Primary Care Provider [phone] Encounter Details Date Type Department Care Team (Late st Contact Info) Description 01/12/2025 Results Follow-Up Obstetrics & Gynecology [address] [place] [address] Yosvany Isaacs MD [address] [place] [address] Social History Tobacco Use Types Packs/Day Years [...] place to sleep or slept in a snf (including now)? No 02/16/2024 [place] Depression Scale Answer Date Recorded [place] Depression Scale Total 4 11/16/2023 The thought [...] drink first t antonieta in the morning (EYE-TUBE BENDER HAND) to steady your nerves or to get rid of a hangover? 0 10/02/2023 CAGE Questionnaire Score 0 024 Utilities Answer Date Recorded In the past 12 months has th e [employer], gas, oil, or water company threatened to shut off services in your home? No 02/16/2024 Comments No Sex and Gender Information Value Date Recorded Sex Assigned at Not on file Legal Sex Female 10:23 AM EST Gender Identity Not on file Sexual Orientation Not on file documented as of this encounter Functional Status * Over the past 2 weeks, how often have you been bothered by any of the following problems? Question Answer Date of Assessment Author Little interest or pleasure in doing things Not at all 02/01/2025 11:37 AM EDT Yady Cancino Feeling down, depressed, or hopeless Not at all 02/01/2025 11:37 AM EDT Yady Cancino Patient Health Questionnaire -2 Score 0 02/01/2025 11:37 AM EDT Yady Cancino * How difficult have these problems made it for you to do your work, take care of things at home, or get along with other people? Answer Date of Assessment Author Not difficult at all 02/01/2025 11:37 AM EDT Yady Garza documented as of this encounter Plan of Treatment Upcoming Encounters Date Type Department Care Team (Late st Contact Info) Description 05/15/2025 11:30 AM EST [facility]ization [facility] [address] [place] [address] 06/01/2025 1:40 PM EST Office Visit [facility] [address], [address] [place] [address] Pamela Pinedo DO [address] [place] [address] 06/27/2025 10:20 AM EST Office Visit [facility] Sleep Disorder Center [address] [place] [address] Maria Guadalupe Alcantar APRN [address] [place] [address] 08/10/2025 1:15 PM EST Office Visit Obstetrics & Gynecology [address] [place] [address] Yosvany Isaacs MD [address] [place] [address] 10/09/2025 11:00 AM EDT Office Visit [facility] [place] [address] [facility], [address] [place] [address] Carolina Patel APRN [address] [place] [address] 01/11/2026 1:30 PM EDT Procedure Visit Obstetrics & Gynecology [address] [place] [address] Yosvany Isaacs MD [address] [place] [address] documented as of this encounter Visit Diagnoses Not on filedocumented in this encounter Additional Health Concerns Assessment Noted Time PHQ-9 Depression Total Score: 0 12/10/19 25 10:42 AM EDT A fall risk assessment has been complete d for the patient 01/05/2025 11:00 AM EDT A Body Mass Index follow-up plan has been documented for the patient 01/05/2025 11:26 AM EDT documented as of this encounter Care Teams Desk Manager Relationship Specialty Start Date End Date Pamela Pinedo DO [address] [place] [address] PCP - General Family Medicine 02/17/24 Summer Jo, RN [facility] Registered Nurse Cardiology 08/17/23 documented as of this encounter
--- OUTSIDE RECORDS SUMMARY | 2025-05-12 13:16 | XMS_ITS | Encounter Summary ---
Author Organization Healthcare Address [address] [place] [address] Care Team Providers Care Slate Trimmer Name Role Phone Summer Jo RN Unavailable Unavailable Pamela Pinedo DO Primary Care Provider [phone] Reason for Referral * Imaging (Routine) - Pending Review Specialty Diagnoses / Procedures Referred By Betsy overton Referred To Contact Gastroenterology Diagnoses Eosinophilic esophagitis Oropharyngeal dysphagia Procedures EGD Danna Carlton APRN [address] [place] [address] Phone: tel: fax: Referral ID Status Reason Start Date Expiration Date Visits Requested Visits Authorized [id number] Pending Review Specialty Services Required 11/09/2026 1 1 Encounter Details Date Type Department Care Team (Late st Contact Info) Description 05/10/2025 Orders Only [facility] [address] [place] [address] Danna Carlton APRN [address] [place] [address] Eosinophilic esophagitis (Primary Dx); Oropharyngeal dysphagia Social History Tobacco Use Types Packs/Day Years [...] money to buy more. Never true 02/16/20 Within the past 12 months, t he [...] place to sleep or slept in a skilled nursing (including now)? No 02/16/2024 [place] Depression Scale Answer Date Recorded [place] Depression Scale Total 4 11/16/2023 The thought [...] drink first t antonieta in the morning (EYE-DIRECTOR HOME HEALTH) to steady your nerves or to get rid of a hangover? 0 10/02/2023 CAGE Questionnaire Score 0 024 Utilities Answer Date Recorded In the past 12 months has e [email or web address], gas, oil, or water company threatened to [...] Immunization [facility] [address] [place] [address] 06/01/2025 1:40 PM EST Office Visit [facility] [address], [address] [place] [address] Pamela Pinedo, [address] [place] [address] 06/27/2025 10:20 AM EST Office Visit [facility] [address] [place] [address] Maria Guadalupe Alcantar APRN [address] [place] [address] 08/10/2025 1:15 PM EST Office Visit [facility] Gynecology [address] [place] [address] Yosvany Isaacs MD [address] [place] [address] 10/09/2025 11:00 AM EDT Office Visit [facility] [place] [address] [facility], [address] [place] [address] Carolina Patel APRN [address] [place] [address] 01/11/2026 1:30 PM EDT Procedure Visit Obstetrics & Gynecology [address] [place] [address] Yosvany Isaacs MD [address] [place] [address] Scheduled Orders Name Type Priority Associated Diagnoses Orde r Schedule EGD Endoscopy Routine Eosinophilic esophagitis Oropharyngeal dysphagia Expected: 05/10/2025, Expires: 11/11/2026 documented as of this encounter Visit Diagnoses Diagnosis Eosinophilic esophagitis- Primary Oropharyngeal dysphagia Dysphagia, oropharyngeal phase documented in this encounter Additional Health Concerns Assessment Noted Time PHQ-9 Depression Total Score: 0 12/10/19 25 10:42 AM EDT A fall risk assessment has been complete d for the patient 05/05/2025 1:27 PM EDT A Body Mass Index follow-up plan has been documented for the patient 05/05/2025 1:56 PM EDT documented as of this encounter Care Teams Slate Trimmer Relationship Specialty Start Date End Date Pamela Pinedo DO [address] [place] [address] PCP - General Family Medicine 02/17/24 Summer Jo, RN [facility] Registered Nurse Cardiology 08/17/23 documented as of this encounter
--- OUTSIDE RECORDS SUMMARY | 2025-05-12 13:16 | XMS_ITS | Encounter Summary ---
Author Organization Healthcare Address [address] [place] [address] Care Team Providers Care Stove Mechanic Name Role Phone Summer Jo RN Unavailable Unavailable Pamela Pinedo DO Primary Care Provider [phone] Encounter Details Date Type Department Care Team (Latest Contact Info) Description 05/05/2025 Travel Social History Tobacco Use Types Packs/Day Years [...] place to sleep or slept in a residential (including now)? No 02/16/2024 [place] Depression Scale Answer Date Recorded [place] Depression Scale Total 4 11/16/2023 The thought [...] drink first t antonieta in the morning (EYE-HEEL GOUGER) to steady your nerves or to get rid of a hangover? 0 10/02/2023 CAGE Questionnaire Score 0 024 Utilities Answer Date Recorded In the past 12 months has th e [employer], gas, oil, or water company threatened to [...] Mira Ashby documented as of this encounter Plan of Treatment Upcoming Encounters Date Type Department Care Team (Late st Contact Info) Description 05/15/2025 11:30 AM EST [facility]ization [facility] [address] [place] [address] 06/01/2025 1:40 PM EST Office Visit [facility] [address] [place] [address] Pamela Pinedo DO [address] [place] [address] 06/27/2025 10:20 AM EST [facility] Visit [facility] [address] [place] [address] Maria Guadalupe Alcantar APRN [address] [place] [address] 08/10/2025 1:15 PM EST Office Visit [facility] [address] [place] [address] Yosvany Isaacs MD [address] [place] [address] 10/09/2025 11:00 AM EDT Office Visit [facility] [place] [address] [facility], [address] [place] [address] Carolina Patel APRN [address] [place] [address] 01/11/2026 1:30 PM EDT Procedure Visit [facility] [address] [place] [address] Yosvany Isaacs MD [address] [place] [address] documented as of this encounter [...] documented as of this encounter Care Teams Stove Mechanic Relationship Specialty Start Date End Date Pamela Pinedo DO [address] [facility] [address] [place] [address] PCP - General Family Medicine 02/17/24 Summer Jo, RN [facility] Registered Nurse Cardiology 08/17/23 documented as of this encounter
--- OUTSIDE RECORDS SUMMARY | 2025-05-12 13:16 | XMS_ITS | Encounter Summary ---
Author Organization Healthcare Address [address] [place] [address] Care Team Providers Care Waiter/Waitress Third Class Name Role Phone Summer Jo RN Unavailable Unavailable Pamela Pinedo DO Primary Care Provider [phone] Encounter Details Date Type Department Care Team (Latest Contact Info) Description 04/03/2025 Travel Social History Tobacco Use Types Packs/Day [...] place to sleep or slept in a halfway (including now)? No 02/16/2024 [place] Depression Scale Answer Date Recorded [place] Depression Scale Total 4 11/16/2023 The thought [...] drink first t antonieta in the morning (EYE-CLINICAL REHABILITATION AIDE) to steady your nerves or to get [...] Immunization [facility] [address] [place] [address] 06/01/2025 1:40 PM EST Office Visit [facility] [address], [address] [place] [id number] Pamela Pinedo DO [address] [place] [address] 06/27/2025 10:20 AM EST Office Visit [facility] [address] [place] [address] Maria Guadalupe Alcantar, [place] [address] [place] [address] 08/10/2025 1:15 PM EST Office Visit [facility] [address] [place] [address] Yosvany Isaacs MD [address] [place] [address] 10/09/2025 11:00 AM EDT Office Visit [facility] [address] [facility], [address] [place] [address] Carolina Patel, EXTRACT OPERATOR [address] [place] [address] 01/11/2026 1:30 PM EDT Procedure Visit [facility] Gynecology [address] [place] [address] Yosvany Isaacs MD [address] [place] [address] documented as of this encounter [...] documented as of this encounter Care Teams Waiter/Waitress Third Class Relationship Specialty Start Date End Date Pamela Pinedo DO [address] [address] PCP - General Family Medicine 02/17/24 Summer Jo, RN [facility] Registered Nurse Cardiology 08/17/23 documented as of this encounter
--- OUTSIDE RECORDS SUMMARY | 2025-05-12 13:16 | XMS_ITS | Encounter Summary ---
Author Organization Healthcare Address [address] [place] [address] Care Team Providers Care Lube Man Name Role Phone Summer Jo RN Unavailable Unavailable Pamela Pinedo DO Primary Care Provider [phone] Encounter Details Date Type Department Care Team (Late st Contact Info) Description 03/15/2024 Lab Requisition [facility] [address] [place] [address] Robert Parada MD [address] [place] [address] Dysphagia, unspecified Social History Tobacco Use Types Packs/Day Years [...] Date Recorded Patient Health Questionnaire-2 Score 0 02/17/2024 Hunger Vital Sign Answer Date Recorded Within [...] place to sleep or slept in a detention (including now)? No 02/16/2024 [place] Depression Scale Answer Date Recorded [place] Depression Scale Total 4 11/16/2023 The thought of harming myself has occurred to me . 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 [address] 06/01/2025 1:40 PM EST Office Visit [facility] [address], [address] [place] [address] Pamela Pinedo DO [address] [place] [address] 06/27/2025 10:20 AM EST Office Visit [facility] [address] [place] [address] Maria Guadalupe Alcantar, [place] [address] [place] [address] 08/10/2025 1:15 PM EST Office Visit Obstetrics & Gynecology [address] [place] [address] Yosvany Isaacs MD [address] [place] [address] 10/09/2025 11:00 AM EDT Office Visit [facility] [address] [facility], [address] [place] [address] Carolina Patel, [place] [address] [place] [address] 01/11/2026 1:30 PM EDT Procedure Visit Ob[facility]etrics & Gynecology [address] [place] [address] Yosvany Isaacs MD [address] [place] [phone] documented as of this encounter Procedures Procedure Name Priority Date/Time Associated Diagnosis Comments SURGICAL PATHOLOGY EXAM Routine 03/15/2024 Dysphagia, unspecified documented in this encounter Results * Surgical Pathology Exam (03/15/2024) Case Report Surgical Pathology Case: [id number] Authorizing Provider: Robert Parada MD Collected: 03/15/2024 Ordering Location: [facility] Lab Received: 03/15/2024 1323 Pathologist: Reyna Deluca MD Specimens: A) - Esophagus, Distal Esophagus Biopsy B) - Esophagus, Mid Esophagus Biopsy 03/16/2024 1:12 PM EDT [facility] Final Diagnosis A. ESOPHAGUS, DISTAL, BIOPSY: - SEVERE BASAL CELL HYPERPLASIA AND >15 EOSINOPHILS/HPF (SEE COMMENT). B. ESOPHAGUS, MID, BIOPSY: - SEVERE BASAL CELL HYPERPLASIA AND >20 EOSINOPHILS/HPF. 03/16/2024 1:12 PM EDT [facility] at 1312 EDT Comment The distal esophageal biopsy shows GE junction type mucosa with chronic inflammation, severe basal cell hyperplasia, and focally >15 eosinophils/HPF. Eosinophilic microabscesses are identified in the superficial layer. The mid esophageal biopsy also shows severe basal cell hyperplasia and >20 eosinophils/HPF. Mild degranulation of eosinophils is identified on both biopsies. Endoscopic description of mucosal changes including ringed esophagus in the middle third and in the lower third of the esophagus is noted. Therefore, the findings could represent eosinophilic esophagitis and further clinical correlation is recommended 03/16/2024 1:12 PM EDT [facility] Clinical Information Dysphagia, unspecified Mucosal changes including ringed esophagus in the middle third and in the lower third of the esophagus 03/16/2024 1:12 PM EDT [facility] Gross Description A. DISTAL ESOPHAGUS BIOPSY Received in formalin labeled d istal esophagus biopsy , are 4 white-red soft tissue fragments measuring 0.2-0.5 cm in greatest dimension. Specimen submitted entirely in cassette A1. Cold Time: 0 [place] B. MID ESOPHAGUS BIOPSY Received in formalin labeled m id esophagus biopsy , are 5 white-red soft tissue fragments measuring 0.2-0.4 cm in greatest dimension. Specimen submitted entirely in cassettes B1. Cold Time: 0 Mia Diop 03/16/2024 1:12 PM EDT [facility] Note: A resident was involved in the service. I attest I examined the relevant preparations for the specimens and confirmed the diagnosis or interpretation. 03/16/2024 1:12 PM EDT [facility] Tissue Esophageal structure / Unknown 03/15/2024 03/15/2024 1:23 PM EDT Tissue specimen (specimen) Esophageal structure / Unknown 03/15/2024 03/15/2024 1:23 PM EDT Robert Parada MD LAB PATHOLOGY ORDERABLES Final Result [facility] [address] [place] [address] documented in this encounter Visit Diagnoses Diagnosis Dysphagia, unspecified documented in this encounter Additional Health Concerns Assessment Noted Time A fall risk assessment has been complete d for the patient 12/28/2023 2:23 PM EDT A Body Mass Index follow-up plan has been documented for the patient 02/18/2024 4:52 PM EDT documented as of this encounter Care Teams Lube Man Relationship Specialty Start Date End Date Pamela Pinedo DO [address] [place] [address] PCP - General Family Medicine 02/17/24 Summer Jo, RN [facility] Registered Nurse Cardiology 08/17/23 documented as of this encounter
--- OUTSIDE RECORDS SUMMARY | 2025-05-12 13:16 | XMS_ITS | Encounter Summary ---
Author Organization Healthcare Address [address] [place] [address] Care Team Providers Care Granite Polisher Name Role Phone Summer Jo RN Unavailable Unavailable Pamela Pinedo DO Primary Care Provider [phone] Reason for Visit * Reason Onset Date Comments [facility]CN Clinical Concern/Question 05/12/2025 Encounter Details Date Type Department Care Team (Late st Contact Info) Description 05/12/2025 Telephone [facility] [address], [address] [place] [address] Pamela Pinedo DO [address] [place] [address] [facility] Clinical Concern/Question Social History Tobacco Use Types Packs/Day Years [...] place to sleep or slept in a longterm (including now)? 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 0 10/02/2023 CAGE Questionnaire Score 0 024 Utilities Answer Date Recorded In the past 12 months has e electric, gas, oil, or water company threatened to shut off services in your home? No 02/16/2024 Comments No Sex and Gender Information Value Date Recorded Sex Assigned at Not on file Legal Sex Female 10:23 AM EST Gender Identity Not on file Sexual Orientation Not on file documented as of this encounter Miscellaneous Notes * Telephone Encounter - Daniel Prakash - 05/12/2025 8:04 AM EDT Clinical Concern/Question Reason for Call: Requesting a same day appointment for severe back pain, please contact pt for moreinformation. Best contact number: [phone] (mobile) Optimal time of day to reach caller: ANYTIME Additional comments/information from caller: None Note: Please do not reply to this message. Follow-up communication and further actions as a result of this message need to be communicated with the patient directly, if the patient is not active onMyChart. If the patient is active on MyChart, they will receive notification of the communication/outcome via [email or web address]. documented in this encounter Plan of Treatment Upcoming Encounters Date Type Department Care Team (Late st Contact Info) Description 05/15/2025 11:30 AM EST Immunization [facility] [address] [place] [address] 06/01/2025 1:40 PM EST Office Visit [facility] [address], [address] [place] [address] Pamela Pinedo DO [address] [place] [address] 06/27/2025 10:20 AM EST Office Visit [facility] [address] [place] [address] Maria Guadalupe Alcantar APRN [address] [place] [address] 08/10/2025 1:15 PM EST Office Visit Obstetrics & Gynecology [address] [place] [address] Yosvany Isaacs MD [address] [place] [address] 10/09/2025 11:00 AM EDT Office Visit [facility] [address] [facility], [address] [place] [address] Carolina Patel, [place] [address] [place] [address] 01/11/2026 1:30 PM EDT Procedure Visit [facility] Gynecology [address] [place] [address] Yosvany Isaacs MD [address] [place] [address] documented as of this encounter [...] documented as of this encounter Care Teams Granite Polisher Relationship Specialty Start Date End Date Pamela Pinedo DO [address] [place] [address] PCP - General Family Medicine 02/17/24 Summer Jo, RN [facility] Registered Nurse Cardiology 08/17/23 documented as of this encounter
--- OUTSIDE RECORDS SUMMARY | 2025-05-12 13:16 | XMS_ITS | Clinical Summary ---
Author Organization Healthcare Address [address] [place] [address] Care Team Providers Care C D Area Supervisor Name Role Phone Summer Jo RN Unavailable Unavailable Pamela Pinedo DO Primary Care Provider [phone] Allergies Active Allergy Reactions Criticality Noted Date Comments Morphine Headache Low 09/01/2022 Medications * This document contains information received from the source organization and may not represent a complete record from that organization. magnesium, as gluconate, (Magonate) 500 (27 Mg) MG tablet Take 1 tablet by mouth in the morning. Active progesterone (Prometrium) 200 MG capsule Take 1 capsule by mouth nightly. 90 capsule 3 02/02/20 25 Active omeprazole (PriLOSEC) [address] capsule Take 1 capsule by mouth daily. Do not crush or chew. 30 capsule 5 05/10/20 25 026 Active fluticasone (Flovent HFA) 220 MCG/ACT inhaler 4 puffs swallowed twice daily for EOE. Do not eat or drink for at least 45 after dose. Rinse mouth with water and spit after use to reduce aftertaste and incidence of candidiasis. 24 g 5 12/20/19 25 025 Discontinued spironolactone (Aldactone) 50 MG tablet Take 1 tablet by mouth daily. 90 each 3 01/06/20 25 025 Discontinued Active Problems Problem Noted Date Diagnosed Date H/O pre-eclampsia 10/19/2024 Morbid obesity 10/19/2024 Mixed hyperlipidemia 10/19/2024 At high risk for falls 02/18/2024 JOSE ELIAS (obstructive sleep apnea) 01/14/2024 Pre-eclampsia, delivered 11/09/2023 Hypertension affecting pregn epifanio, delivered, current hospitalization 10/02/2023 Lightheadedness 09/14/2023 Tachycardia 08/17/2023 Shortness of breath 08/17/2023 Choledocholithiasis 08/07/2023 Cholelithiasis 08/07/2023 Supervision of high-risk , second trime ster 05/10/2023 History of PCOS 03/24/2023 Antepartum multigravida of advanced maternal age 0903/24/2023 Dichorionic diamniotic twin , antepartu m 03/24/2023 Calculus of gallbladder with acute and chronic cholecystitis without obstruction 09/02/2022 Atelectasis 08/31/2022 Other nonspecific abnormal finding of lung field 08/31/2022 Gallstone pancreatitis 08/29/2022 Insulin controlled gestation al diabetes mellitus (GDM) in third trimester 08/16/2021 Overview (07/17/2023): [ ] serial growth scans [ ] NSTs starting 32 weeks Class 3 severe obesity with serious comorbidity and body mass index (BMI) of 40.0 to 44.9 in adult 08/05/2021 Dysmenorrhea 09/10/2018 PCOS (polycystic ovarian syndrome) 09/10/2018 Assessment & Plan (05/05/2025 1:37 PM EDT): Assessment & Plan (02/01/2025 12:00 PM EDT): Assessment & Plan (01/05/2025 11:26 AM EDT): Resolved Problems Problem Noted Date Diagnosed Date Resolved Date Twin , dichorionic/ diamniotic, third trimester 09/26/2023 09/29/2023 Abdominal pain 08/07/2023 04/02/2025 Hx of gestational diabetes i n prior , currently 03/24/2023 06/18/2023 Overview (03/24/2023): Instructions/drink given for early glucola Annual physical exam 10/05/2021 023 Routine follow-up 09/03/2021 03/24/2023 GDM, class A2 06/18/2021 10/05/2021 Overview (07/03/2021): DX 26w. Leobardo started @ 31wks Encounters Date Type Department Care Team Description 05/12/2025 Telephone Critical access hospital [address], [address] [place] [address] Pamela Pinedo DO HCN Clinical Concern/Question 05/10/2025 Orders Only [facility] [address] [place] [address] Danna Carlton, DIGITAL STRATEGY DIRECTOR Eosinophilic esophagitis (Primary Dx); Oropharyngeal dysphagia 05/05/2025 1:15 PM EDT Office Visit Obstetrics & Gynecology [address] [place] [address] Yosvany Isaacs MD Irregular menstruation, unspecified (Primary Dx); PCOS (polycystic ovarian syndrome); Hirsutism 05/05/2025 Travel 04/08/2025 Results Follow-Up Critical access hospital [address], [address] [place] [address] Pamela Pinedo DO 04/06/2025 Results Follow-Up [facility] [place] [address] [facility], [address] [place] [address] Carolina Patel DIGITAL STRATEGY DIRECTOR 04/03/2025 Travel 03/07/2025 Orders Only Critical access hospital [address], [address] [place] [address] Pamela Pinedo DO Hypothyroidism, unspecified type (Primary Dx) from Last 3 Months Immunizations Immunization Administration Dates Next Due Influenza, Unspecified 05/27/2020,05/22/2018 Pfizer-BioNTech COVID-19 Vac cine (Torre Cap) 12+ years (henry-sucrose) 09/17/2021 Pfizer-BioNTech COVID-19 Vac cine (Purple Cap) 12+ 08/20/2020,07/30/2020 Tdap 08/11/2023,06/04/2021,02/24/2017 Family History Medical History Relation Name Comments Heart attack Father Eduarda alonso Heart disease Father Eduarda alonso Heart failure Father Eduarda alonso Coronary artery disease Maternal Grandfather Heart attack Maternal Grandfather Heart murmur Sister Charlie Lafleur Hypertension Sister Charlie Lafleur Relation Name Status Comments Father Eduarda alonso Maternal Grandfather Sister Charlie Lafleur Social History Tobacco Use Types Packs/Day Years Used Date Smoking Tobacco: Never Passive Smoke Exposure: Never Smokeless Tobacco: Never Tobacco Cessation:Counseling Given: Not Answered Alcohol Use Standard Drinks/Week Comments Not Currently [...] place to sleep or slept in a retirement (including now)? No 02/16/2024 [place] Depression Scale Answer Date Recorded [place] Depression Scale Total 4 11/16/2023 The thought [...] drink first t antonieta in the morning (EYE-TEST HOLE DRILLER) to steady your nerves or to get [...] on file Sexual Orientation Not on file Last Filed Vital Signs Vital Sign Reading Time Taken Comments Blood Pressure 117/79 05/05/2025 1:25 PM EDT Pulse 69 02/01/2025 11:35 AM EDT Temperature 36.7 C (98 F) 02/01/2025 11:35 AM EDT Respiratory Rate 20 01/05/2025 10:57 AM EDT Oxygen Saturation 97% 02/01/2025 11:35 AM EDT Inhaled Oxygen Concentration - - Weight 125 kg (275 lb 9.2 oz) 05/05/2025 1:25 PM EDT Height 167.6 cm (5' 6 ) 05/05/2025 1:25 PM EDT Body Mass Index 44.48 05/05/2025 1:25 PM EDT Plan of Treatment Upcoming Encounters Date Type Department Care Team (Late st Contact Info) Description 05/15/2025 11:30 AM EST [facility]ization [facility] [address] [place] [address] 06/01/2025 1:40 PM EST Office Visit Critical access hospital [address], [address] [place] [address] Pamela Pinedo DO [address] [place] [address] 06/27/2025 10:20 AM EST [facility] [address] [place] [address] Maria Guadalupe Alcantar, FLORENTIN [address] [place] [address] 08/10/2025 1:15 PM EST Office Visit Obstetrics & Gynecology [address] [place] [address] Yosvany Isaacs MD [address] [place] [address] 10/09/2025 11:00 AM EDT Office Visit [facility] [place] [address], [address] [place] [address] Carolina Patel APRN [address] [place] [address] 01/11/2026 1:30 PM EDT Procedure Visit Obstetrics & Gynecology [address] [place] [address] Yosvany Isaacs MD [address] [place] [address] Health Maintenance Due Date Last Done Comments [facility]-Infant/Child/Adol SDOH Screenings 1985 [facility]-Varicella Vaccines (1 of 2 - 13+ 2-dose series) 1998 [facility]- SDOH Screenings 2003 [facility]-Adult SDOH Screenings 2003 [facility]-Hepatitis B Vaccines (1 of 3 - 19+ 3-dose series) 01/17/2004 [facility]-Pneumococcal Vaccine: Pediatrics (0 to 5 Years) and At-Risk Patients (6 to 49 Years) (1 of 2 - PCV) 01/17/2004 HPV Vaccines (1 - 3-dose SCDM series) 01/17/2012 USU-ZZISS-14 Vaccine (4 - 2024- season) 2025 09/17/2021, 08/20/2020, 07/30/2020 [facility]-Influenza Vaccine (#1) 2025 05/27/2020, [facility]-Depression Screening 05/05/2026 025, 12/09/2024, 11/16/2023 [facility]-Pap Smear 01/06/2028 01/05/2025, 09/11, 06/01/2019 [facility]-Cervical Cancer Screening 01/05/2030 [facility]-HPV/Cotest 01/05/2030 01/05/2025, 09/11, 10/03/2021 [facility]-DTaP,Tdap,and Td Vaccines (4 - Td or Tdap) 08/11/2033 08/11/2023, 06/04/2021, 02/24/2017 [facility]-Zoster Vaccines (1 of 2) 2035 [facility]-Diabetes: Hemoglobin A1C Discontinued 02/17/2024, 10/03/2021, 01/25/2021 [facility]-HIV Screening Completed 02/17/2024, 04/30/2023 [facility]-Hepatitis C Screening Completed 02/17/2024, [facility]-Obesity Intervention Completed 025, 02/01/2025, 01/05/2025, Additional history exists [facility]-HIB Vaccines Aged Out No longer e ligible based on patient's age to complete this topic [facility]-Hepatitis A Vaccines Aged Out No longer eligible based on patient's age to complete this topic [facility]-IPV Vaccines Aged Out No longer e ligible based on patient's age to complete this topic [facility]-Rotavirus Vaccines Aged Out No lo nger eligible based on patient's age to complete this topic Procedures Procedure Name Priority Date/Time Associated Diagnosis Comments LIPID PROFILE, PLASMA Add-On 04/03/2025 11:33 AM EDT Mixed hyperlipidemia CREATININE, PLASMA STAT 04/03/2025 11 :33 AM EDT Lesion of neck Thyroid nodule THYROID PEROXIDASE ANTIBODY Routine 04/03/2025 11:33 AM EDT Hypothyroidism, unspecified type TSH REFLEX FT4 Routine 04/03/2025 11:33 AM EDT Hypothyroidism, unspecified type REFERRED THINPREP PAP AND HPV (SO) Routine 01/05/2025 11:20 AM EDT Encounter for annual routine gynecological examination HEPATITIS C ANTIBODY W/REFLEX TO HCV QUANT PCR Routine 02/17/2024 12:36 PM EDT 9 weeks gestation of HIV 1/2 ANTIBODY/ANTIGEN SCREEN WITH REFLEX TO HIV I/II DIFFERENTIATION Routine 02/17/2024 12:36 PM EDT Screening for HIV (human immunodeficiency virus) HEMOGLOBIN A1C Routine 02/17/2024 12:36 PM EDT 9 weeks gestation of from Last 3 Months or Most Recently Relevant to Health Maintenance Results * TSH Reflex FT4 (04/03/2025 11:33 AM EDT) Thyroid Stimulating Hormone, Plasma 0.96 0.40 - 4.20 uIU/mL 04/03/2025 1:57 PM EDT [facility] Blood Venous blood specimen / Unknown Venipuncture / Unknown 04/03/2025 11:33 AM EDT 04/03/2025 11:33 AM EDT Narrative [facility] - 04/03/2025 1:57 PM EDT Trimester Specific Ranges TSH ( IU/mL) 1st Trimester 0.1 - 3.0 2nd Trimester 0.19 - 4.06 3rd Trimester 0.3 - 3.7 us Pamela InfoHubble Shahida DO LAB BLOOD ORDERABLES Final Resul t Performing Organization Address City/[facility] Co de Phone Number [facility] [address] [place] [address] * Thyroid Peroxidase Antibody (04/03/2025 11:33 AM EDT) Thyroid Peroxidase Antibody <5 <=8 IU/mL 04/03/2025 2:16 PM EDT [facility] Blood Venous blood specimen / Unknown Venipuncture / Unknown 04/03/2025 11:33 AM EDT 04/03/2025 11:33 AM EDT us Pamela Lerner Shahida DO LAB BLOOD ORDERABLES Final Resul t Performing Organization Address [facility] [place] [address] * Creatinine, Plasma (04/03/2025 11:33 AM EDT) Creatinine, Plasma 0.65 0.60 - 1.10 mg/dL 04/03/2025 1:57 PM EDT [facility] eGFRcr 114.3 mL/min/1.7 3m*2 04/03/2025 1:57 PM EDT [facility] Comment:Reported eGFRcr in m L/min/1.73m2 is based the CKD-EPI 2020 equation that does not use a race coefficient. Blood Venous blood specimen / Unknown Venipuncture / Unknown 04/03/2025 11:33 AM EDT 04/03/2025 11:33 AM EDT us Roland Hopson MD LAB BLOOD ORDERABLES Final Res ult [facility] [address] [place] [address] * (ABNORMAL) Lipid panel (04/03/2025 11:33 AM EDT) Cholesterol, Plasma 210(H) <200 mg/dL 04/03/2025 1:57 PM EDT [facility] Comment: Cholesterol Reference Range (age >17 years): Desirable <200 mg/dL Borderline 200 to 239 mg/dL Undesirable >239 mg/dL HDL 38(L) >=50 mg/dL 04/03/2025 1:57 PM EDT [facility] Comment: HDL Cholesterol Reference Ranges (age >17 years): Female, acceptable > or = 50 mg/dL Male, acceptable > or = 40 mg/dL Triglycerides, Plasma 168(H) <150 mg/dL 04/03/2025 1:57 PM EDT [facility] Comment: Triglyceride Reference Range (age >17 years): Desirable: <150 mg/dL Borderline high: 150 to 199 mg/dL High: 200 to 499 mg/dL Very high: >499 mg/dL Increased risk of pancreatitis: >1000 mg/dL Cholesterol/HDL Ratio 6 04/03/2025 1:57 PM EDT [facility] LDL, Calculated 142(H) <100 mg/dL 1:57 PM EDT [facility] Comment: LDL Cholesterol Reference Range (age >17 years): Optimal: <100 mg/dL Near or above optimal: 100 - 129 mg/dL Borderline high: 130 - 159 mg/dL High: 160 - 189 mg/dL Very high: >189 mg/dL LDL Cholesterol Reference Range (age <18 years): Desirable: <110 mg/dL Borderline: 110 - 129 mg/dL Undesirable: >130 mg/dL LDL Cholesterol is calculated using the Yip/NIH equation. Fasting greater than or equal to 12 hours? Unknown 04/03/2025 1:57 PM EDT [facility] Blood Venous blood specimen / Unknown Venipuncture / Unknown 04/03/2025 11:33 AM EDT 04/03/2025 11:33 AM EDT us Carolina L Rosewood DIGITAL STRATEGY DIRECTOR LAB BLOOD ORDERABLES Fin al Result [facility] [address] [place] [address] * Referred ThinPrep Pap and HPV (SO) (01/05/2025 11:20 AM EDT) Pap, Source Cx/Vagina 01/11/2025 2:32 PM EDT [facility] ([facility]) EER Referred ThinPrep Pap and HPV See Note 01/11/2025 2:32 PM EDT [facility] ([facility]) PAP, THINPREP Normal 01/11/2025 2:32 PM EDT [facility] ([facility]) High Risk HPV Normal 01/11/2025 2:32 PM EDT [facility] ([facility]) Swab Vaginal and cervical cytologic material / Unknown Non-blood Collection / Unknown 01/05/2025 11:20 AM EDT 01/05/2025 12:47 PM EDT Narrative [facility] ([facility]) - 01/11/2025 2:32 PM EDT Authorized individuals can access the [facility] Enhanced Report with an [facility] Connect account using the following link. Your local lab can assist you in obtaining the patient report if you don't have a Connect account. [email or web address] Performed By: [facility] [address] [place] [address] Supervisor [place]: Omer Babcock MD, PhD CLIA Number: [id number] SPECIMEN PART A. Cervical, Endocervical, Vaginal, ThinPrep Pap (Personnel Quality Assurance Auditor) CYTOLOGY HX Date of Last Menstrual Period: N FINAL DIAGNOSIS INTERPRETATION: Negative for Intraepithelial Lesion or Malignancy. SPECIMEN ADEQUACY:Satisfactory for evaluation. Endocervical/transformation zone component present. Electronically Signed Out : Shey Guzman Performed by: [facility] [address] [place] [address] [place] [address] Gaviota Han MD, HR-HPV: Negative Test performed by the FDA-approved [employer] (Gen-Probe) APTIMA HPV test, which detects HPV genotypes: 16, 18, 31, 33, 35, 39, 45, 51, 52, 56, 58, 59, 66, and 68. This assay has been cleared for the specimen types listed below. Other specimen types have not been validated for this assay. -Clinician-collected ThinPrep Pap cervical specimens. Performed by: [facility] [address] [place] [address] [place] [address] Gaviota Han MD, Yosvany Isaacs MD LAB REF LAB BLOOD AND FLUID ORD Final Result Performing Organization Address City/[facility]/ZIP Co de Phone Number [facility] [email or web address] ([address] [address] * HIV 1 & 2 Antibody/Antigen Screen (02/17/2024 12:36 PM EDT) Pathologist [facility] HIV 1 & 2 Antibody/Antigen Screen Non Reactive Non Reactive 02/17/2024 6:59 PM EDT [facility] Comment:Screening for HIV 1 & 2 antibodies, and P24 antigen is NONREACTIVE. No confirmatory testing is required. Blood Venous blood specimen / Unknown Venipuncture / Unknown 02/17/2024 12:36 PM EDT 02/17/2024 12:36 PM EDT Sana Love APRN, CNM LAB BLOOD ORDERABLES Final Result [facility] [address] [place] [address] * Hepatitis C Antibody w/Reflex to HCV Quant PCR (02/17/2024 12:36 PM EDT) Hepatitis C Antibody Negative Negative 02/17/2024 6:59 PM EDT [facility] Blood Venous blood specimen / Unknown Venipuncture / Unknown 02/17/2024 12:36 PM EDT 02/17/2024 12:36 PM EDT Sana Love APRN, RICARDO LAB BLOOD ORDERABLES Final Result Performing Organization Address [facility] Co de Phone Number [facility] [address] [place] [address] * (ABNORMAL) Hemoglobin A1c (02/17/2024 12:36 PM EDT) Hemoglobin A1c 5.9(H) <5.7 % 02/17/2024 6:45 PM EDT [facility] Blood Venous blood specimen / Unknown Venipuncture / Unknown 02/17/2024 12:36 PM EDT 02/17/2024 12:36 PM EDT Narrative [facility] - 02/17/2024 6:45 PM EDT HA1C Interpretive Data: Diagnosis of Diabetes: Diabetic > or = 6.5% Pre-diabetic 5.7 to 6.4% Non-diabetic < or = 5.6% Glycemic Targets for Type I and Type II Diabetics: Non- Adults <7.0% Adults <6.0% Children and Adolescents <7.5% Source: [place] [employer]. Standards of medical care in diabetes,2017. Diabetes Care.2017:40 (suppl 1):S1-S135. HbA1c assay performed by an ion-exchange chromatography method that is certified traceable to the DCCT. Sana Love APRN, RICARDO LAB BLOOD ORDERABLES Final Result Performing Organization Address City/[facility] Co de Phone Number [facility] [address] [place] [address] from Last 3 Months or Most Recently Relevant to Health Maintenance Insurance JESSICA Advance Directives * Full Code (Latest Code Status on File) Date Activated Date Inactivated Comments 10/02/2023 9:24 AM 10/04/2023 1:14 PM Question Answer Comments Patient has decision-making capacity? Yes * Full Code Date Activated Date Inactivated Comments 09/26/2023 7:56 AM 09/29/2023 6:13 PM Question Answer Comments Patient has decision-making capacity? Yes * Full Code Date Activated Date Inactivated Comments 08/29/2022 12:07 PM 09/03/2022 9:59 PM Question Answer Comments Patient has decision-making capacity? Yes * Full Code Date Activated Date Inactivated Comments 08/16/2021 12:56 PM 08/20/2021 5:57 PM Question Answer Comments Patient has decision-making capacity? Yes Care Teams C D Area Supervisor Relationship Specialty Start Date End Date Pamela Pinedo DO [address] [address] PCP - General Family Medicine 02/17/24 Summer Jo, RN [facility] Registered Nurse Cardiology 08/17/23
--- OUTSIDE RECORDS SUMMARY | 2025-05-12 13:16 | XMS_ITS | Encounter Summary ---
Author Organization Healthcare Address [address] [place] [address] Care Team Providers Care Office Machine Technician Name Role Phone Summer Jo RN Unavailable Unavailable Pamela Pinedo DO Primary Care Provider [phone] Encounter Details Date Type Department Care Team ([facility] st Contact Info) Description 04/06/2025 Results Follow-Up [facility] [place] [address] [facility] [address], [address] [place] [address] Carolina Patel, SUPERVISOR [employer] [address] [place] [address] Social History Tobacco Use Types Packs/Day Years [...] place to sleep or slept in a long-term (including now)? No 02/16/2024 [place] Depression Scale Answer Date Recorded [place] Depression Scale Total 4 11/16/2023 The thought [...] drink first t an[place]ieta in the morning (EYE-WAITER/WAITRESS CABIN CLASS) to steady your nerves or to get [...] Immunization [facility] [address] [place] [address] 06/01/2025 1:40 PM EST Office Visit [facility] [address], [address] [place] [address] Pamela Pinedo DO [address] [place] [address] 06/27/2025 10:20 AM EST [facility] [address] [place] [address] Maria Guadalupe Alcantar, [place]OR[place] [address] [place] [address] 08/10/2025 1:15 PM EST Office Visit [facility] Gyne[facility] [address] [place] [address] Yosvany Isaacs MD [address] [place] [address] 10/09/2025 11:00 AM EDT Office Visit [facility] [place] [address], [address] [place] [address] Carolina Patel APRN [address] [place] [address] 01/11/2026 1:30 PM EDT Procedure Visit Obstetrics & Gynecology [address] [place] [address] Yosvany Isaacs MD [address] [place] [address] documented as of this encounter [...] documented as of this encounter Care Teams Office Machine Technician Relationship Specialty Start Date End Date Pamela Pinedo DO [address] [place] [address] PCP - General Family Medicine 02/17/24 Summer Jo, RN [facility] Registered Nurse Cardiology 08/17/23 documented as of this encounter
--- NOTE | 2025-05-12 13:18 | XR_ITS ---
FINAL REPORT CLINICAL HISTORY: low back pain COMPARISON: None FINDINGS: LUMBOSACRAL SPINE SERIES Five views of the lumbosacral spine were obtained. There is no fracture present. There is no malalignment. There is moderate disc space narrowing at L5-S1. Moderate facet sclerosis is noted in the lower lumbar spine. IMPRESSION: Moderate degenerative/chronic changes without acute process. Reviewed, Interpreted and Dictated by Jaime Patel MD Transcribed by Monica Mccrary Authenticated and [facility]
== END 2025-05-12 23:59 | disposition home or self-care (01) ==
LOC: RAD 13:14
PROVIDERS: PCP Hospitalist; Visit Provider Nurse Practitioner
DX: M47.817 Spondylosis without myelopathy or radiculopathy, lumbosacral region (principal)
CPT/HCPCS: 72110

== ENCOUNTER 2025-07-05 09:00 | Outpatient (RCR) | payer BC, SELFPAY | END 2025-07-05 23:59 | disposition home or self-care (01) | LOC: PT 09:00 | PROVIDERS: PCP Hospitalist; Visit Provider Physician Assistant Medical | DX: M54.50 Low back pain, unspecified (principal); G89.29 Other chronic pain | CPT/HCPCS: 97110; 97162 ==